=== PATIENT | female | born 1990 | race Caucasian/White ===

== ENCOUNTER → 2022-07-31 08:06 | Outpatient (REF) | payer OTHER, SELFPAY ==
--- NOTE | 2022-07-31 08:13 | ECG_ITS ---
Test Reason : chest pain Blood Pressure : / mmHG Vent. Rate : 075 BPM Atrial Rate : 075 BPM P-R Int : 150 ms QRS Dur : 082 ms QT Int : 400 ms P-R-T Axes : 044 027 036 degrees QTc Int : 446 ms Normal sinus rhythm Normal ECG No previous ECGs available Referred By: Jenn Blanchard Electronically Signed By:RITA REYES
[2022-07-31 08:21] LABS: MANUAL DIFF FLAG NO
[2022-07-31 08:28] LABS: Basophils Percent Auto 0.5 % (0-2); Eosinophils Absolute Auto 0.2 X10*3/uL (0.0-0.4); Hematocrit 38.3 % (37.0-47.0); Hemoglobin 12.3 g/dl (12.0-16.0); Imm Gran Abs Auto 0.03 X10*3/uL (0.00-0.03); Imm Gran Pct Auto 0.4 % (0.0-0.4); Lymphocytes Absolute Auto 1.5 X10*3/uL (1.2-4.9); Lymphocytes Percent Auto 19.5 % (20-40); Mean Corpuscular HGB Conc 32.1 g/dl (31.0-35.0); Mean Corpuscular Hemoglobin 27.3 pg (27.0-33.0); Mean Corpuscular Volume 84.9 fL (80.0-98.0); Mean Platelet Volume 10.3 fL (9.4-12.3); Monocytes Absolute Auto 0.6 X10*3/uL (0.1-1.2); Monocytes Percent Auto 7.2 % (2-11); Neutrophils Absolute Auto 5.6 x10*3/uL (2.0-8.3); Neutrophils Percent Auto 70.4 % (45-73); Platelet Count 302 X10*3/uL (160-400); Red Blood Count 4.51 X10*6/uL (4.20-5.50); Red Cell Distribution Width 13.8 % (11.0-16.0); White Blood Count 7.9 X10*3/uL (4.8-10.8)
[2022-07-31 09:22] LABS: Alanine Aminotransferase 16 U/L (0-31); Albumin Level 4.3 g/dL (3.5-5.0); Alkaline Phosphatase 63 U/L (39-117); Anion Gap 11 (12-20); Aspartate Amino Transferase 15 U/L (5-31); Bilirubin Total 0.7 mg/dL (0.0-1.0); Blood Urea Nitrogen 14 mg/dL (9-16); Calcium 9.4 mg/dL (8.4-10.2); Carbon Dioxide 25 mmol/L (22-29); Chloride 106 mmol/L (96-108); Cholesterol 155 mg/dL; Estimated Glomerular Filt Rate > 60; Glucose Fasting 89 mg/dL (60-99); HDL Cholesterol 34 mg/dL; LDL Cholesterol Calculated 110 mg/dl; Potassium 4.4 mmol/L (3.3-5.1); Sodium 138 mmol/L (135-145); Thyroid Stimulating Hormone 0.51 uIU/mL (0.32-4.0); Total Protein 7.7 g/dL (6.5-8.0); Triglycerides 59 mg/dL
--- NOTE | 2022-07-31 15:00 | CA_ITS ---
Transthoracic Echocardiogram Patient (Last, First, Middle): Nabor Rosales, Gender: Female Date of : 1990 Age: 32 Procedure Date: 07/31/2022 Procedure Type: Transthoracic Echocardiogram Location: OP Height: 170.18 cm Weight: 104.33 kg BSA: 2.15 m2 Heart Rate: 79 bpm BP: 148 / 80 mmHg Button And Buckle Maker: SB Referring MD: Jenn Blanchard MD Symptoms: R01.1 - Cardiac murmur, unspecified Study Quality: Adequate ECG Rhythm: Sinus Conclusions: - The left ventricular systolic function is normal. The calculated ejection fraction is 65% by biplane method. - No obvious valvular pathology seen on this study. Findings Left Ventricle Normal left ventricular cavity size. The left ventricular systolic function is normal. The calculated ejection fraction is 65% by biplane method. There is no evidence of regional wall motion abnormalities. Diastolic function is normal for age. There is mild septal asymmetric hypertrophy. Right Ventricle Normal right ventricular cavity size and systolic function. Atria Both atria are normal in size. Aortic Valve There is a normal trileaflet aortic valve. There is no aortic valve stenosis. There is no aortic valve regurgitation. Mitral Valve The mitral valve appears normal. There is no mitral valve regurgitation. There is no mitral valve stenosis. Pulmonic Valve The pulmonic valve is likely normal. Tricuspid Valve There is no tricuspid valve regurgitation. Tricuspid regurgitation envelope is inadequate for calculation of right ventricular systolic pressure. Great Vessels The asc aorta is normal in size. Venous The inferior vena cava is normal in size and collapses greater than 50% with inspiration. Pericardium/Pleural There is no evidence of pericardial effusion. Prior Study Comparison No prior study available for comparison. Recommendations, Care & Conclusions No obvious valvular pathology seen on this study. Measurements 2D Linear Measurements IVSd: 1.15 0.6-0.9/0.6-1.0 cm LVIDd: 4.51 3.9-5.3/4.2-5.9 cm LVIDd Index: 2.10 2.4-3.2/2.2-3.1 cm/m2 LVIDs: 3.17 2.0-3.6 cm LVPWd: 0.91 0.7-1.1 cm LA Diam: 3.80 2.7-3.8/3.0-4.0 cm LAIDs Index: 1.77 1.5-2.3 cm/m2 LV Mass: 199.67 67-162/88-224 g LV Mass Index: 92.87 43-95/49-115 g/m2 LVOT Diam: 2.40 3.0+(-)1.3 cm 2D Systolic Function EF 4C: 67.00 >55% EF 2C: 62.30 >55% EF BiP: 64.80 >55% Mitral Valve MV Pk E: 0.88 MV PK A: 0.65 MV Decel Time: 156.00 E/A: 1.40 E'Lateral: 10.20 E'Medial: 8.70 E/E' Med: 10.10 E/E' Lat: 8.60 PHT: 46.00 MVA PHT: 4.78 Decel Bulloch: 5.61 Aortic Valve AoV Pk Juan Jose: 1.45 AoV Pk Grad: 8.00 EUGENE: 3.37 LVOT LVOT Pk Juan Jose: 1.06 LVOT Mn Juan Jose: 0.73 LVOT VTI: 0.21 LVOT Pk Grad: 4.00 LVOT Mn Grad: 2.00 LVOT Diam: 2.40 LVOT Area: 4.52 Diastolic Function MV Pk E: 0.88 MV Pk A: 0.65 E/A: 1.40 E'Medial: 8.70 E/E' Med: 10.10 E' Laterial: 10.20 E/E' Lat: 8.60 Right Ventricle TAPSE (mm): 18.90 TVS' Juan Jose: 14.10 Tricuspid Valve RA Press: 3.00 Great Vessels Aorta Sinus of Valsalva: 3.40 2.0-3.5 cm Ao Asc: 3.20 2.1-3.4 cm Pulmonary Veins Pulm Vein S/D 1.40 Pulmonary Valve PV Pk Juan Jose: 1.00 Peak PV Grad: 4.00 Updated in Other Vendor System with Status of Final Nikhil Hubbard MD electronically signed on 08/02/2022 12:39:53 PM with status of Final
== END ==
LOC: HO.CARD 08:06
PROVIDERS: PCP Internal Medicine; Visit Provider Internal Medicine
DX: R07.9 Chest pain, unspecified (principal); R01.1 Cardiac murmur, unspecified; E66.9 Obesity, unspecified; Z68.36 Body mass index [BMI] 36.0-36.9, adult; I10 Essential (primary) hypertension; D64.9 Anemia, unspecified
CPT/HCPCS: 36415; 80053; 80061; 84443; 85025; 93005; 93306

== ENCOUNTER 2023-11-11 08:36 | Outpatient (REF) | payer OTHER, SELFPAY ==
[2023-11-11 09:52] LABS: Estimated Average Glucose 105 mg/dL; Hemoglobin A1c % 5.3 % (<6.0)
[2023-11-11 10:09] LABS: Alanine Aminotransferase 14 U/L (0-31); Alkaline Phosphatase 64 U/L (39-117); Anion Gap 9 (12-20); Aspartate Amino Transferase 15 U/L (5-31); Bilirubin Total 0.5 mg/dL (0.0-1.0); Blood Urea Nitrogen 9 mg/dL (9-16); Calcium 9.4 mg/dL (8.4-10.2); Carbon Dioxide 24 mmol/L (22-29); Chloride 110 mmol/L (96-108); Cholesterol 135 mg/dL (<200); Estimated Glomerular Filt Rate > 60; Glucose Random 89 mg/dL (60-115); HDL Cholesterol 37 mg/dL (>40); LDL Cholesterol Calculated 83 mg/dL (<100); Sodium 139 mmol/L (135-145); Triglycerides 77 mg/dL (<150)
[2023-11-11 10:25] LABS: TSH reflex Free T4 1.11 uIU/mL (0.32-4.0)
[2023-11-11 12:46] LABS: Cortisol Random < 1.0 ug/dL
[2023-11-14 21:09] LABS: Thyrotropin Receptor Antibody <1.00 IU/L (<=2.00)
[2023-11-22 10:38] LABS: Testosterone, Free 1.7 pg/mL (0.1-6.4); Testosterone, Total 14 ng/dL (2-45)
== END 2023-11-11 08:37 | disposition home or self-care (01) ==
LOC: HO.LAB 08:36
PROVIDERS: PCP Internal Medicine; Visit Provider Internal Medicine Endocrinology, Diabetes & Metabolism
DX: L68.0 Hirsutism (principal); I10 Essential (primary) hypertension
CPT/HCPCS: 36415; 80053; 80061; 82533; 83036; 83498; 83520; 84402; 84403; 84443

== ENCOUNTER 2023-12-08 08:24 | Outpatient (AMB) | payer OTHER, SELFPAY ==
[2023-12-08 08:46] VITALS: BP 142/98; PULSE 81; O2SAT 98; BMI 38.1
--- NOTE | 2023-12-08 08:46 | A.OFFPC_ITS ---
Vital Signs 12/08/23 08:46 Height 5 ft 7 in Weight 243 lb BMI 38.1 BP 142/98 H Blood Pressure Location Lt brachial Position Sitting Pulse 81 Pulse Source Pulse Oximeter Pulse Oximetry (%) 98 Oxygen Delivery Method Room Air Intake Visit Reasons: Annual Exam Anode Adjuster Required: No Accompanied by: Self / Same As Patient Allergies No Known Allergies Allergy (Verified 12/08/23 08:53) Medication List - Last Reconciled 12/08/23 by Jenn Blanchard MD famotidine 20 mg PO BID medroxyprogesterone 30 mg PO DAILY metoprolol succinate ER 25 mg PO DAILY 90 days Tobacco use date assessed: 12/08/23 Dental Screening Dental Screen Date: 12/08/23 Did you have a dental visit in the last 12 months?: Yes Did you have a dental problem in the last 6 months where you did not have access to dental care?: No Was dental information given to patient?: Patient has dentist HPI HPI Comments History of Present Illness Details This is a 33-year-old female that comes for physical exam. Last Pap smear was January 2023 and as per patient was normal. She complains of difficulty swallowing solids that started few weeks ago. Has enlarged tonsils and mild s ore throat and I will start her on amoxicillin. No fever, night sweats or lymphadenopathy. Labs were discussed and were within normal limits. She is obese with a BMI of 38.1 and was advised to diet and exercise to reach BMI goal less than 30. She has not interested in being referred to weight management for weight loss surgery. [facility] Surgical History History of hydrocephalus Family History Mother Hypertension Diabetes Thyroid disease Father Diabetes Mental health disorder Social History Housing: House Alcohol intake: never Patient Tobacco Use Status: Never used Tobacco e-Cigarette/Vaping Use: Never Used Second Hand Smoke Exposure: No service: No Current occupational status: employed Current occupational exposures/hazards: No Cognitive needs: No Hearing needs: No Vision needs: No Questionnaire PHQ-9 Over the last 2 weeks, how often have you been bothered by any of the following problems? 1. Little interest or pleasure in doing things: not at all 2. Feeling down, depressed, or hopeless: not at all 3. Trouble falling or staying asleep, or sleeping too much: not at all 4. Feeling tired or having little energy: not at all 5. Poor appetite or overeating: not at all 6. Feeling bad about yourself - or that you are a failure or have let yourself or your family down: not at all 7. Trouble concentrating on things, such as reading the newspaper or watching television: not at all 8. Moving or speaking so slowly that other people could have noticed. Or the opposite - being so fidgety or restless that you have been moving around a lot more than usual: not at all 9. Thoughts that you would be better off or of hurting yourself in some way: not at all Total score: 0 Depression Screening Interpretation: Negative Depression Screening Done: Yes 76152 - PHQ-9 Billing: Yes Source: Developed by Drs. Mikal Boston, Yana Isaac, Vick Zavala and colleagues, with an educational charles from [employer]. Thrive Questionnaire Date Thrive assessed: 12/08/23 I am a: Patient What is your living situation today?: I have a steady place to live Within the past 12 months, did the food you bought not last and you didn't have the money to get more?: Never true Within the past 12 months, did you worry whether your food would run out before you got money to buy more?: Never true Do you have trouble paying for medicines?: No Do you have trouble getting transportation to medical appointments?: No Do you have trouble paying your heating and electricity bill?: No Do you have trouble taking care of your child, family member or friend?: No Do you have trouble with day-to-day activities such as bathing, preparing meals, shopping, managing finances, etc.?: No Are you currently unemployed and looking for a job?: No Are you interested in more education?: No Currently or been in a relationship where the following occur: no concerns reported THRIVE Score: 0 AUDIT C Alcohol Use Questionnaire (AUDIT-C) 1. How often do you have a drink containing alcohol?: Never Total Score: 0 Score Reviewed/Action Taken: No TANI-7 AMB Questionnaire TANI-7 Date TANI - 7 assessed: 12/08/23 Feeling nervous, anxious, or on edge: 0 = Not at all Not being able to stop or control worryin = Not at all Worrying too much about different things: 0 = Not at all Trouble relaxin = Not at all Being so restless that it is hard to sit still: 0 = Not at all Becoming easily annoyed or irritable: 0 = Not at all Feeling afraid as if something awful might happen: 0 = Not at all Total TANI-7 score (0-4 normal; 5-9 mild; 10-14 moderate; 15-21 severe): 0 Source: Developed by Drs. Mikal Boston, Yana Isaac, Vick Zavala and colleagues, with an educational charles from [employer]. TANI-7 Assessment Billing TANI-7 Assessment Tool: TANI-7 Assessment 39009 Review of Systems Const All systems reviewed & are unremarkable except as noted in HPI and below Eyes Reports no additional complaints, Denies change in vision and Denies other visual disturbances ENT Reports dysphagia and Reports sore throat Card Denies chest pain at rest, Denies chest pain with activity, Denies edema, Denies irregular heart rhythm, Denies claudication, Denies dyspnea, Denies dyspnea on exertion, Denies orthopnea, Denies paroxysmal nocturnal dyspnea and Denies slow heart rate Resp Denies cough, Denies dyspnea and Denies dyspnea on exertion GI Denies abdominal pain, Denies change in bowel habits, Reports dysphagia, Denies excessive flatus, Denies nausea and Denies vomiting Denies urinary incontinence, Denies urinary hesitancy and Denies urinary urgency Neuro Denies lack of coordination Physical exam (Primary Care) Vital Signs: Last Vital Signs Pulse 81 12/08/23 08:46 BP 142/98 H 12/08/23 08:46 Pulse Ox 98 12/08/23 08:46 Oxygen Delivery Method Room Air 12/08/23 08:46 BMI result Body Mass Index 38.1 BMI Assessment/Plan discussion: High BMI High, discussed plan: lifestyle, weight reduction, dietary and physical activity Tobacco/Smoking Status: Tobacco use Status Tobacco use date assessed 12/08/23 12/08/23 08:51 Patient Tobacco Use Status Never used Tobacco 12/08/23 08:51 e-Cigarette/Vaping Use Never Used 12/08/23 08:51 PHQ-9: PHQ-9 Score PHQ-9: Total score 0 12/08/23 08:51 Depression Screening Interpretation: Negative Thrive Assessment: Date of Thrive Assessment Date Thrive assessed 12/08/23 12/08/23 08:51 Currently or been in a relationship where the following occur: no concerns reported Const Orientation/consciousness: patient oriented x3 HENMT Head: Yes normal to inspection, Yes normocephalic and Yes atraumatic Ears: external ears normal Eyes General: appearance normal, both eyes and all related structures Eyelids: Yes eyelids normal Conjunctivae: conjunctivae normal Neck Neck: Yes normal visual inspection and Yes supple Resp Effort & Inspection: normal respiratory effort Auscultation: clear to auscultation bilaterally Cardio Jugular venous distension: no JVD Rate: regular rate Rhythm: regular rhythm Heart sounds: S1 normal heart sound present and S2 normal heart sound present GI Inspection: Yes normal to inspection Palpation (GI): Soft to palpation and nontender Auscultation: normal bowel sounds Skin General skin exam: no rashes or lesions noted Neuro General: patient oriented x3 and no focal motor deficits Extrem General: Yes full ROM Psych Appearance: grossly normal Assessment and Plan Assessment & Plan (1) Physical exam: Code(s): Z00.00 - Encounter for general adult medical examination without abnormal findings Plan: Repeat in a year. Orders: Orders Lipid Panel 1 Year Z00.00 - Encounter for general adult medical examination without abnormal findings Comprehensive [place]. Panel Fast 1 Year Z00.00 - Encounter for general adult medical examination without abnormal findings FL barium swallow Today R13.10 - Dysphagia, unspecified Referrals Ear/Nose/Throat Referral J35.1 - Hypertrophy of tonsils Medications: New amoxicillin 500 mg PO BID 7 days 14 tabs 0RF Coding Level of Care Code Est Pt Prev Care 18-39y(08978) Diagnoses Physical exam Z00.00 Additional Codes TANI-7 Assessment Billing - TANI-7 Assessment Tool: TANI-7 Assessment 61291 ([id number]) Time Spent (min) 31
== END 2023-12-08 09:03 | disposition home or self-care (01) ==
PROVIDERS: Visit Provider Internal Medicine
DX: Z00.00 Encounter for general adult medical examination without abnormal findings (principal)
CPT/HCPCS: 99395

== ENCOUNTER 2023-12-22 07:46 | Outpatient (REF) | payer OTHER, SELFPAY ==
--- NOTE | ~2023-12-22 | FL_ITS ---
EXAMINATION: XR FLUOROSCOPY UPPER GI WITH AIR CLINICAL INFORMATION: Dysphagia COMPARISON: None TECHNIQUE: Fluoroscopic air contrast upper GI examination was performed utilizing standard techniques with thin and thick barium and effervescent granules. Numerous spot images were obtained. FINDINGS: Lateral cine images of the oropharynx and hypopharynx demonstrate normal swallow mechanism with normal epiglottic inversion and soft palate elevation. There was persistent pooling of contrast in the vallecula and piriform sinuses. No tracheal penetration, glottic or subglottic aspiration identified. No nasopharyngeal reflux present. Hypopharyngeal structures appear normal without evidence of mass or diverticulum. There was no significant cricopharyngeal achalasia. Dual and single contrast images of the esophagus demonstrate normal caliber, contour, and mucosal pattern. No evidence of stricture, mass, or ulcerations identified. Esophageal peristalsis was mildly disorganized. A small type I hiatal hernia is present. A small amount of gastroesophageal reflux is seen in the distal esophagus. Dual contrast and single contrast images of the stomach demonstrated normal contour and mucosal pattern without evidence of mass, ulceration, or other abnormality. Contrast freely passed into the gastric antrum and duodenal bulb without delay. Single and air-contrast images of the duodenal bulb demonstrate no abnormality. The duodenal sweep has a normal appearance, course, and mucosal fold appearance. No malrotation. The imaged proximal jejunum has a normal fold pattern and caliber. FLUOROSCOPY TIME: 3 minutes 35 seconds Number of Spot Images: 7 Number of Cine: 14 DOSE AREA PRODUCT: 2880 uGy-m2 (microgray-meter squared) FL/FL barium swallow IMPRESSION: 1. Mildly disorganized esophageal peristalsis. 2. Small type I hiatal hernia. 3. Mild gastroesophageal reflux. This procedure was performed by Harinder Altamirano PA-C, and supervised by Dr. Pruett
== END 2023-12-22 07:47 | disposition home or self-care (01) ==
LOC: HO.XRAY 07:46
PROVIDERS: PCP Internal Medicine; Visit Provider Internal Medicine
DX: R13.10 Dysphagia, unspecified (principal)
CPT/HCPCS: 74220

== ENCOUNTER → 2023-12-22 07:46 | Outpatient (BNV) | payer OTHER, SELFPAY | PROVIDERS: PCP Internal Medicine; Visit Provider Physician Assistant Surgical | DX: R13.10 Dysphagia, unspecified (principal) | CPT/HCPCS: 74246 ==

== ENCOUNTER 2024-03-08 12:08 | Outpatient (AMB) | payer OTHER, SELFPAY ==
--- NOTE | 2024-03-08 12:17 | A.OFFVIS_ITS ---
Vital Signs 03/08/24 12:27 Height 5 ft 7 in Weight 239 lb BMI 37.4 BP 134/71 Blood Pressure Location Lt brachial Position Sitting Pulse 75 Intake Visit Reasons: Dysphagia Intake Note: Patient new consult for Dysphagia Patient cc: difficulty swallowing on and off, Nauseas come and go with poor appetite, abdominal burning sensation with diarrhea come and go. Denies any other GI issues. 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 She is referred by Jenn Miller. PMX Fibromyalgia syndrome Hypertension Heart murmur * SURGICAL HISTORY Question hydrocephalus procedure * ALLERGIES: NKDA * [employer]) LABS: Laboratory Tests 11/11/23 08:41 Estimated GFR > 60 Total Bilirubin 0.5 AST 15 ALT 14 Alkaline Phosphatase 64 TSH 1.11 BARIUM SWALLOW 12/22/23 FINDINGS: Lateral cine images of the oropharynx and hypopharynx demonstrate normal swallow mechanism with normal epiglottic inversion and soft palate elevation. There was persistent pooling of contrast in the vallecula and piriform sinuses. No tracheal penetration, glottic or subglottic aspiration identified. No nasopharyngeal reflux present. Hypopharyngeal structures appear normal without evidence of mass or diverticulum. There was no significant cricopharyngeal achalasia. Dual and single contrast images of the esophagus demonstrate normal caliber, contour, and mucosal pattern. No evidence of stricture, mass, or ulcerations identified. Esophageal peristalsis was mildly disorganized. A small type I hiatal hernia is present. A small amount of gastroesophageal reflux is seen in the distal esophagus. Dual contrast and single contrast images of the stomach demonstrated normal contour and mucosal pattern without evidence of mass, ulceration, or other abnormality. Contrast freely passed into the gastric antrum and duodenal bulb without delay. Single and air-contrast images of the duodenal bulb demonstrate no abnormality. The duodenal sweep has a normal appearance, course, and mucosal fold appearance. No malrotation. The imaged proximal jejunum has a normal fold pattern and caliber. FLUOROSCOPY TIME: 3 minutes 35 seconds Number of Spot Images: 7 Number of Cine: 14 DOSE AREA PRODUCT: 2880 uGy-m2 (microgray-meter squared) FL/FL barium swallow IMPRESSION: 1. Mildly disorganized esophageal peristalsis. 2. Small type I hiatal hernia. 3. Mild gastroesophageal reflux. TODAY'S VISIT The problem has been for months. When eating she will feel like both liquids and solid food gets stuck just above the sternal notch. This is an on and off problem. She has a globus sensation. This happens 3-4 times a week. She suffers HB that improved with famotidine 20mg bid and she has cut down coffee and spicy foods. It is worse in the am that she feels epigastric pain and HB. She has been on the famotidine 4-5 years. She tried protonix first but the famotidine works better. No meds changes, no big diet changes, no illness or wt loss or gain. For the st part her stooling is normal except for occasional diarrhea r/t caffeine. No known similar FHX of problems. She had an EGD in [address] Ayala. She seems to remember it was okay. Her mother has gallstones. EGD/ US, Mod barium swallow since liquids are a problem w/o solids. Any cardiac or respiratory problems. There are no prior problems with anesthesia or sedation. There are no infectious disease problems. ROV 6 weeks to eval increase in famotidine bid to 40mg. [facility], LAT[facility] Medical History (Updated 04/22/24 @ 11:31 by RAFFY Tsang) Physical exam Surgical History History of hydrocephalus Family History Mother Hypertension Diabetes Thyroid disease Father Diabetes Mental health disorder Social History Housing: House Alcohol intake: never Patient Tobacco Use Status: Never used Tobacco e-Cigarette/Vaping Use: Never Used Second Hand Smoke Exposure: No service: No Current occupational status: employed Current occupational exposures/hazards: No Cognitive needs: No Hearing needs: No Vision needs: No Review of Systems Const Denies fatigue, Denies fever(s), Denies night sweats, Denies poor appetite and Denies weight loss ENT Reports Normal hearing present, Denies dental pain, Reports dysphagia, Denies hearing loss, Denies mouth pain, Denies odynophagia, Denies throat swelling, Denies tongue swelling and Reports other (Dentition adequate) Card Reports no additional complaints Resp Reports no additional complaints GI Details: Denies abdominal pain, Denies melena, Denies bloating, Denies hematochezia, Denies constipation, Denies GI cramping, Reports dysphagia, Denies excessive flatus, Denies early satiety, Reports heartburn, Denies diarrhea, Denies nausea, Denies odynophagia, Denies vomiting and Denies hematemesis Skin/Breast Denies pruritus, Denies lesions, Denies rash and Denies jaundice Neuro Reports Normal hearing present and Denies Abnormal speech present Endo Denies fatigue Aller/Immun Denies throat swelling and Denies tongue swelling Physical Exam Vital Signs: Last Vital Signs Pulse 75 03/08/24 12:27 BP 134/71 03/08/24 12:27 BMI result Body Mass Index 37.4 Const General: cooperative, no acute distress, well developed and well groomed Nutritional Appearance: well nourished and obese morbidly obese Orientation/consciousness: oriented to person, oriented to place and oriented to time Limitations: No language barrier HEENT Head: Yes normocephalic and Yes atraumatic Eyes General: appearance normal, both eyes and all related structures Pupils: Equal, round and reactive pupils present Neck Neck: Yes normal visual inspection and Yes no lymphadenopathy Thyroid: Thyroid normal Resp Effort & Inspection: normal respiratory effort and able to speak in complete sentences Auscultation: clear to auscultation bilaterally Cardio Rate: regular rate Rhythm: regular rhythm Heart sounds: Normal, physiologic split S2 sound present Peripheral pulses: radial pulses present and posterior tibial pulses present GI Inspection: No distended, No Abdominal panniculus present and Yes obesity Palpation (GI): Soft to palpation, nontender, no guarding, not rigid and No hepatosplenomegaly present Percussion: Yes normal to percussion Auscultation: normal bowel sounds Rectal Exam - Female: deferred Skin General skin exam: no rashes or lesions noted, turgor normal, skin not dry, no jaundice, No spider nevi and no striae Rashes: no rashes Nails: normal Neuro General: oriented to person, oriented to place and oriented to time Cranial nerves: Yes Equal, round and reactive pupils present and Yes Normal hearing present Speech: No Abnormal speech present Extrem General: Yes normal to inspection, No clubbing, No cyanosis and No edema Psych Appearance: grossly normal and well kempt Mental Status: mental status grossly normal Speech and movement: Normal speech and movement present Affect: normal affect Attitude: cooperative Thought process: Normal thought process present and not confabulating Thought content: Normal thought content present Insight: Limited insight present (Psych) Judgement: Limited judgement present (Psych) Results Reviewed Results Reviewed: Laboratory Tests 11/11/23 08:41 Estimated GFR > 60 Total Bilirubin 0.5 AST 15 ALT 14 Alkaline Phosphatase 64 TSH 1.11 BARIUM SWALLOW 12/22/23 FINDINGS: Lateral cine images of the oropharynx and hypopharynx demonstrate normal swallow mechanism with normal epiglottic inversion and soft palate elevation. There was persistent pooling of contrast in the vallecula and piriform sinuses. No tracheal penetration, glottic or subglottic aspiration identified. No nasopharyngeal reflux present. Hypopharyngeal structures appear normal without evidence of mass or diverticulum. There was no significant cricopharyngeal achalasia. Dual and single contrast images of the esophagus demonstrate normal caliber, contour, and mucosal pattern. No evidence of stricture, mass, or ulcerations identified. Esophageal peristalsis was mildly disorganized. A small type I hiatal hernia is present. A small amount of gastroesophageal reflux is seen in the distal esophagus. Dual contrast and single contrast images of the stomach demonstrated normal contour and mucosal pattern without evidence of mass, ulceration, or other abnormality. Contrast freely passed into the gastric antrum and duodenal bulb without delay. Single and air-contrast images of the duodenal bulb demonstrate no abnormality. The duodenal sweep has a normal appearance, course, and mucosal fold appearance. No malrotation. The imaged proximal jejunum has a normal fold pattern and caliber. FLUOROSCOPY TIME: 3 minutes 35 seconds Number of Spot Images: 7 Number of Cine: 14 DOSE AREA PRODUCT: 2880 uGy-m2 (microgray-meter squared) FL/FL barium swallow IMPRESSION: 1. Mildly disorganized esophageal peristalsis. 2. Small type I hiatal hernia. 3. Mild gastroesophageal reflux. Assessment & Plan Assessment & Plan (1) Dysphagia: Code(s): R13.10 - Dysphagia, unspecified Category: Medical (2) Enlarged tonsils: Code(s): J35.1 - Hypertrophy of tonsils Category: Medical (3) Chronic GERD: Code(s): K21.9 - Gastro-esophageal reflux disease without esophagitis Category: Medical (4) Class 2 obesity with body mass index (BMI) of 36.0 to 36.9 in adult: Code(s): E66.9 - Obesity, unspecified; Z68.36 - Body mass index [BMI] 36.0-36.9, adult Category: Medical (5) Upper abdominal pain: Code(s): R10.10 - Upper abdominal pain, unspecified Category: Medical Plan The problem has been for months. When eating she will feel like both liquids and solid food gets stuck just above the sternal notch. This is an on and off problem. She has a globus sensation. This happens 3-4 times a week. She suffers HB that improved with famotidine 20mg bid and she has cut down coffee and spicy foods. It is worse in the am that she feels epigastric pain and HB. She has been on the famotidine 4-5 years. She tried protonix first but the famotidine works better. No meds changes, no big diet changes, no illness or wt loss or gain. For the most part her stooling is normal except for occasional diarrhea r/t caffeine. No known similar FHX of problems. She had an EGD in [address] Ayala. She seems to remember it was okay. Her mother has gallstones. EGD/ US, Mod barium swallow since liquids are a problem w/o solids. Any cardiac or respiratory problems. There are no prior problems with anesthesia or sedation. There are no infectious disease problems. ROV 6 weeks to eval increase in famotidine bid to 40mg. Orders: Orders FL barium swallow modified 04/06/24 R13.10 - Dysphagia, unspecified, K21.9 - Gastro-esophageal reflux disease without esophagitis US abdomen complete 03/08/24 R10.10 - Upper abdominal pain, unspecified EGD - GI Use Only 03/08/24 R13.10 - Dysphagia, unspecified Medications: New famotidine (Pepcid) 40 mg PO BID 60 tabs 6RF R13.10 - Dysphagia, unspecified, K21.9 - Gastro-esophageal reflux disease without esophagitis Discontinued amoxicillin Discontinued Reason: Patient Completed Course 500 mg PO BID 7 days 14 tabs 0RF Coding Level of Care Code New Pt Level 3 (03083) Diagnoses Dysphagia R13.10 Enlarged tonsils J35.1 Chronic GERD K21.9 Class 2 obesity with body mass index (BMI) of 36.0 to 36.9 in adult E66.9; Z68.36 Upper abdominal pain R10.10
[2024-03-08 12:27] VITALS: BP 134/71; PULSE 75; BMI 37.4
== END 2024-03-08 13:03 | disposition home or self-care (01) ==
PROVIDERS: PCP Internal Medicine; Visit Provider Nurse Practitioner
DX: R13.10 Dysphagia, unspecified (principal); J35.1 Hypertrophy of tonsils; K21.9 Gastro-esophageal reflux disease without esophagitis; E66.9 Obesity, unspecified; Z68.36 Body mass index [BMI] 36.0-36.9, adult; R10.10 Upper abdominal pain, unspecified
CPT/HCPCS: 99203

== ENCOUNTER → 2024-03-08 12:08 | Outpatient (BNVA) | payer OTHER, SELFPAY | PROVIDERS: PCP Internal Medicine; Visit Provider Nurse Practitioner ==

== ENCOUNTER 2024-03-16 09:28 | Outpatient (REF) | payer OTHER, SELFPAY ==
--- NOTE | ~2024-03-16 | US_ITS ---
EXAMINATION: US ABDOMEN COMPLETE CLINICAL INFORMATION: Upper abdominal pain, unspecified. COMPARISON: None available. TECHNIQUE: Real-time imaging of the abdominal viscera. Limited visualization due to bowel gas. FINDINGS: PANCREAS: Limited visualization of pancreatic tail and head. Imaged portion of pancreatic body is unremarkable. ABDOMINAL AORTA: Limited visualization of the abdominal aorta. Imaged portion of mid abdominal aorta is within normal limits in caliber. INFERIOR VENA CAVA: Visualized portions are normal. LIVER: Increased hepatic parenchymal heterogeneity and echogenicity could be associated with hepatocellular disease/hepatic steatosis and substantially limits visualization. Correlation with liver function tests and clinical exam recommended to determine further management. GALLBLADDER:. Focal thickening of the anterior gallbladder wall measures 0.4 cm. No gallstones appreciated. COMMON BILE DUCT: Normal in caliber measuring 0.5 cm in diameter. RIGHT KIDNEY: No hydronephrosis. No renal calculi. Limited visualization. The kidney measures 11.3 cm in maximum dimension. LEFT KIDNEY: No hydronephrosis. No renal calculi. Limited visualization. The kidney measures 11.9 cm in maximum dimension. SPLEEN: Normal. The spleen measures 10.0 cm in maximum dimension. FREE FLUID: None. US/US abdomen complete IMPRESSION: 1. Increased hepatic parenchymal heterogeneity and echogenicity could be associated with hepatocellular disease/hepatic steatosis and substantially limits visualization. Correlation with liver function tests and clinical exam recommended to determine further management. 2. Focal thickening of the anterior gallbladder wall measures 0.4 cm. No gallstones appreciated.
== END 2024-03-16 09:29 | disposition home or self-care (01) ==
LOC: HO.US 09:28
PROVIDERS: PCP Internal Medicine; Visit Provider Nurse Practitioner
DX: R10.10 Upper abdominal pain, unspecified (principal)
CPT/HCPCS: 76700

== ENCOUNTER 2024-04-06 14:14 | Outpatient (REF) | payer OTHER, SELFPAY ==
--- NOTE | ~2024-04-06 | FL_ITS ---
EXAMINATION: Modified Barium Swallow CLINICAL INFORMATION: Dysphagia COMPARISON: None TECHNIQUE: Modified barium swallow was performed under lateral fluoroscopy with patient in standing position. Barium mixed with solids and liquids of different consistencies was administered by the speech pathologist. Examination was recorded in the fluoroscopy suite. FINDINGS: No laryngeal penetration or aspiration was observed during this examination. FLUOROSCOPY TIME: 36 seconds Number of Spot Images: N/A DOSE AREA PRODUCT: 311.8 uGy-m2 (microgray-meter squared) FL/FL Modified Barium Swallow IMPRESSION: No laryngeal penetration or aspiration was observed during this examination. Refer to the speech therapy report for further clarification This procedure was performed by Harinder Altamirano PA-C, and supervised by Dr. Pruett Electronically signed by: Jose Pruett MD 04/08/2024 12:46 PM EDT
--- NOTE | 2024-04-13 14:05 | MHC.SL.IMP ---
Date of Plan of Treatment: 04/06/24 Onset of Symptoms/Illness: 09/06/23 Date Treatment Started: 04/06/24 Admitting Diagnosis: R13.10 Dysphagia, unspecified K21.9 Gastro-esophageal reflux disease without esophagitis Primary Speech & Language Diagnosis: R13.10 Dysphagia Reason for Today's Visit: 00837 Modified Barium Swallow Study Pre-evaluation Dietary Consistencies: Regular Pre-evaluation Liquid Consistency: Thin Pre-evaluation Medication Administration: Whole with Liquid Medical History: Modified Barium Swallow Study Fluoroscopic Evaluation of Swallowing Function CPT Code 57432 Evaluation Year: 2023 Reason for Study: Difficulty swallowing Referring Physician: Lo AKBAR Evaluating Clinician: Christy English MA, CCC-BODYWORK THERAPIST Study Number: 1 Patient Name: Nabor Rock Status: Outpatient, Ambulatory Age: 34 Gender: Female Medical History History of hydrocephalus Current (pre-evaluation) Intake/Diet: Route: PO Diet Grade: Regular Liquid Consistencies: Thin Pre-Study Functional Oral Intake Scale (FOIS): 7- Total oral intake with no restrictions Pain: None reported at time of study SUBJECTIVE: Patient is a 34 year old female with history of fibromyalgia syndrome, hypertension, and heart murmur, referred for a modified barium swallow study by Lo AKBAR from the Gastroenterology office. Patient reported trouble swallowing intermittently for months with the sensation that something was stuck just above the sternal notch when eating and drinking. Patient says this occurs 3-4 times a week. She did have a barium swallow x-ray on 12/22/23 which showed mildly disorganized esophageal peristalsis, small type 1 hiatal hernia, and mild gastroesophageal reflux. Oral Motor Exam Facial Symmetry: Symmetrical Mouth Occlusion: Normal Oral-Facial Teeth Characteristics: Intact/Normal Oral-Facial Lip Pucker Description: Normal Oral-Facial Smile (Lips) Description: Normal Oral-Facial Puff Cheeks Description: Normal Tongue Size: Normal Is patient able to manage secretions?: Yes Food and Liquid Trials: Oral Impairment: Lip Closure: Did not test Oral Impairment: Tongue Control During Bolus Hold: Did not test Oral Impairment: Bolus Preparation/Mastication: 0=Timely and efficient chewing and mashing Oral Impairment: Bolus Transport/Lingual Motion: 0=Brisk tongue motion Oral Impairment: Oral Residue: 2=Residue collection on oral structures Oral Impairment:Initiation of Pharyngeal Swallow: 1=Bolus head in valleculae Pharyngeal Impairment: Soft Palate Elevation: 0=No bolus between soft palate (SP)/pharyngeal wall (PW) Pharyngeal Impairment: Laryngeal Elevation: 1=Partial thyroid cartilage/arytenoids to epiglottic petiole movement Pharyngeal Impairment: Anterior Hyoid Excursion: 1=Partial anterior movement Pharyngeal Impairment: Epiglottic Movement: 1=Partial inversion Pharyngeal Impairment: Laryngeal Vestibular Closure:: 0=Complete: no air/contrast in laryngeal vestibule Pharyngeal Impairment: Pharyngeal Stripping Wave: 0=Present: complete Pharyngeal Impairment: Pharyngeal Contraction: Did not test Pharyngeal Impairment: Pharyngoesophageal Segment Openin=Complete distension and complete duration: no obstruction of flow Pharyngeal Impairment: Tongue Base (TB) Retraction: 1=Trace column of contrast/air between TB and posterior PW Pharyngeal Impairment: Pharyngeal Residue: 2=Collection of residue within or on pharyngeal structures Pharyngeal Impairment: Esophageal Clearance Upright Position: Did not test Impressions and Recommendations Clinical Observations: OBJECTIVE: Time-out: performed at 15:00 Evaluation Start: 14:30; Stop: 14:35 Patient Positioning: Standing Viewing Planes: LATERAL ONLY Contrast: MBSImP? Standardized Protocol using commercially prepared, standardized Barium viscosities, including: Varibar? THIN LIQUID (40% w/v, <15 cps) , Varibar? PUDDING (40% w/v, <3216-6427 cps) , 1/2 Shortbread Cookie (1 x1 x.25 ) MBSImP ID: [id number] [facility] Results: Lip closure for intraoral bolus containment could not be assessed due to logistical reasons not related to physiologic impairment. Tongue control during bolus hold could not be assessed due to logistical reasons not related to physiologic impairment. Bolus preparation and mastication resulted in timely and efficient chewing and mashing. Bolus transport/lingual motion was with brisk tongue motion. Oral residue was a collection on oral structures. Initiation of the pharyngeal swallow occurred when the bolus head was in the valleculae. Soft palate elevation resulted in no bolus between the soft palate and the pharyngeal wall. Laryngeal elevation was decreased, with partial superior movement of the thyroid cartilage/partial approximation of the arytenoids to the epiglottic petiole. Anterior hyoid excursion demonstrated partial anterior movement. Epiglottic movement resulted in partial inversion. Laryngeal vestibular closure was complete, as indicated by no air or contrast within the laryngeal vestibule at the height of the swallow. Pharyngeal stripping wave was present and complete. Pharyngeal contraction could not be determined due to logistical reasons not related to physiologic impairment. Pharyngoesophageal segment opening was completely distended for complete duration with no obstruction of bolus flow. Tongue base retraction allowed a trace column of contrast or air between the retracted tongue base and the posterior pharyngeal wall. Pharyngeal residue was a collection of residue within or on pharyngeal structures. Esophageal clearance in the upright position could not be assessed due to logistical reasons not related to physiologic impairment. Oral Impairment Score: 3 (absence of score, component 1component 2) Pharyngeal Impairment Score: 5 (absence of score, component 13) Esophageal Impairment Score: --- (absence of score, component 17) Laryngeal Penetration and Aspiration: Neither penetration nor aspiration was observed in today's study with Cookie, Puree, Thin. ASSESSMENT: This exam was conducted by the speech pathologist and the radiologist. Patient was standing for lateral view only and was able to feed herself without difficulty. She trialed Regular, Puree, and Thin (via cup) consistencies. Oral phase was quite unremarkable. Timely and efficient mastication. Brisk lingual motion. There was minimal residue coating the tongue and floor of mouth. Pharyngeal swallow trigger initiated when the bolus head reached the valleculae. No evidence of nasopharyngeal reflux. Incomplete laryngeal elevation with partial epiglottic inversion. Complete laryngeal vestibular closure. No evidence of aspiration or penetration during this exam. Mild retention in the valleculae with trace residue on the tongue base and in the pyriforms, reduced with subsequent swallows. No obstruction of flow through the PES. Liquid Intake Recommendation: Thin Liquid Intake Strategies: Unrestricted Dietary Recommendations: Regular Medication Administration: Whole with Liquid Please contact the pharmacy regarding appropriate crushable or liquid drug formulations that are available whenever modified delivery is recommended. Compensatory Strategies Recommended: Sitting Upright (90 deg), Double Swallow, Small Bites and Sips, Alternate Liquids/Solids, Rate of Ingestion Change Supervision during eating and or drinking: None Needed Recommendation for Speech Therapy: NA:Typical Evaluation Text Comment: Intake Recommendations: Route: PO Diet Grade: Regular Liquid Consistencies: Thin Post-Study Functional Oral Intake Scale (FOIS): 7- Total oral intake with no restrictions Mild oral and pharyngeal residue. No evidence of aspiration or penetration. Suggested Referrals: The patient might benefit from a referral to: Gastroenterology Indication for Referral: Continue workup Therapy Recommendations: This exam showed oral and pharyngeal phases to be relatively functional for swallowing. Recommend continue with an unmodified diet with strategies to promote clearance: take small bites, chew well, alternate bites and sips, dry swallow between bites. Speech Therapy is not indicated at this time. Recommend patient continue to monitoring her swallowing, if there are any changes or worsening of symptoms, she may benefit from a repeat-assessment. Clinician - Supplemental, Miscellaneous Communication: It is important to note MBSS objective studies are snapshots in time and Patient function might vary with factors such as time of day or concomitant medical conditions. For this reason, the final treatment plan for this patient should rest with their medical care team. Additional recommendations should be considered with the totality of the Patient in mind. Thank for the opportunity to participate in the care of this patient. If you have any questions about the content of this report, please contact the [facility]. Education: Education regarding findings from today's study and plans for therapy were provided to Patient only through Verbal Instruction. Understanding was expressed by the Patient only. Observation Nurse Clinician/Clinical Fellow: No Supervisory Statement: N/A Speech Language Pathologist: Christy English M.A., CCC-BODYWORK THERAPIST
== END 2024-04-06 14:15 | disposition home or self-care (01) ==
LOC: HO.XRAY 14:14
PROVIDERS: PCP Internal Medicine; Visit Provider Nurse Practitioner
DX: R13.10 Dysphagia, unspecified (principal); K21.9 Gastro-esophageal reflux disease without esophagitis
CPT/HCPCS: 74230; 92611

== ENCOUNTER → 2024-04-06 14:30 | Outpatient (BNV) | payer OTHER, SELFPAY | PROVIDERS: PCP Internal Medicine; Visit Provider Radiology Diagnostic Radiology | DX: R13.10 Dysphagia, unspecified (principal) | CPT/HCPCS: 74230 ==

== ENCOUNTER 2024-04-22 10:56 | Outpatient (AMB) | payer OTHER, SELFPAY ==
[2024-04-22 11:11] VITALS: BP 147/78; PULSE 81; BMI 37.6
--- NOTE | 2024-04-22 11:11 | A.OFFVIS_ITS ---
Vital Signs 04/22/24 11:11 Height 5 ft 7 in Weight 240 lb 4.862 oz BMI 37.6 BP 147/78 H Blood Pressure Location Rt brachial Position Sitting Pulse 81 Intake Visit Reasons: 6 week follow up Intake Note: Nabor presents in office follow up of US and barium swallow. CC: Patient reports that she is doing better with the medications prescribed to her, but continues to feel something stuck in her throat. [employer] Required: No Accompanied by: Self / Same As Patient Allergies No Known Allergies Allergy (Verified 04/22/24 11:15) HPI HPI 6 week follow up: Details: The problem has been for months. When eating she will feel like both liquids and solid food gets stuck just above the sternal notch. This is an on and off problem. She has a globus sensation. This happens 3-4 times a week. She suffers HB that improved with famotidine 20mg bid and she has cut down coffee and spicy foods. It is worse in the am that she feels epigastric pain nad HB. She has been on the famotidine 4-5 years. She tried protonix first but the famotidine works better. No meds changes, no big diet changes, no illness or wt loss or gain. For the most part her stooling is normal except for occasional dairrhea r/t caffeine. No known similar FHX of problems. She had an EGD in [address] Ayala. She seems to remember it was okay. Her mother has gallstones. EGD/ US, Mod barium swallow since liquids are a problem w/o solids. ROV 6 weeks to eval increase in famotidine bid to 40mg. Assessment & Plan (1) Dysphagia: Code(s): R13.10 - Dysphagia, unspecified Category: Medical (2) Enlarged tonsils: Code(s): J35.1 - Hypertrophy of tonsils Category: Medical (3) Chronic GERD: Code(s): K21.9 - Gastro-esophageal reflux disease without esophagitis Category: Medical (4) Class 2 obesity with body mass index (BMI) of 36.0 to 36.9 in adult: Code(s): E66.9 - Obesity, unspecified; Z68.36 - Body mass index [BMI] 36.0-36.9, adult Category: Medical (5) Upper abdominal pain: Code(s): R10.10 - Upper abdominal pain, unspecified Category: Medical Orders: Orders FL barium swallow modified Today K21.9 - Gastro-esophageal reflux disease without esophagitis, R13.10 - Dysphagia, unspecified US abdomen complete Today R10.10 - Upper abdominal pain, unspecified EDG - GI Use Only Today R13.10 - Dysphagia, unspecified Medications: New famotidine (Pepcid) 40 mg PO BID 60 tabs 6RF K21.9 - Gastro-esophageal reflux disease without esophagitis, R13.10 - Dysphagia, unspecified Discontinued amoxicillin Discontinued Reason: Patient Completed Course 500 mg PO BID 7 days 14 tabs 0RF ULTRASOUND OF THE ABDOMEN 03/28/24 FINDINGS: PANCREAS: Limited visualization of pancreatic tail and head. Imaged portion of pancreatic body is unremarkable. ABDOMINAL AORTA: Limited visualization of the abdominal aorta. Imaged portion of mid abdominal aorta is within normal limits in caliber. INFERIOR VENA CAVA: Visualized portions are normal. LIVER: Increased hepatic parenchymal heterogeneity and echogenicity could be associated with hepatocellular disease/hepatic steatosis and substantially limits visualization. Correlation with liver function tests and clinical exam recommended to determine further management. GALLBLADDER:. Focal thickening of the anterior gallbladder wall measures 0.4 cm. No gallstones appreciated. COMMON BILE DUCT: Normal in caliber measuring 0.5 cm in diameter. RIGHT KIDNEY: No hydronephrosis. No renal calculi. Limited visualization. The kidney measures 11.3 cm in maximum dimension. LEFT KIDNEY: No hydronephrosis. No renal calculi. Limited visualization. The kidney measures 11.9 cm in maximum dimension. SPLEEN: Normal. The spleen measures 10.0 cm in maximum dimension. FREE FLUID: None. US/US abdomen complete IMPRESSION: 1. Increased hepatic parenchymal heterogeneity and echogenicity could be associated with hepatocellular disease/hepatic steatosis and substantially limits visualization. Correlation with liver function tests and clinical exam recommended to determine further management. 2. Focal thickening of the anterior gallbladder wall measures 0.4 cm. No gallstones appreciated. BARIUM SWALLOW 04/08/24 FINDINGS: No laryngeal penetration or aspiration was observed during this examination. FLUOROSCOPY TIME: 36 seconds Number of Spot Images: N/A DOSE AREA PRODUCT: 311.8 uGy-m2 (microgray-meter squared) FL/FL barium swallow modified IMPRESSION: No laryngeal penetration or aspiration was observed during this examination. Refer to the speech therapy report for further clarification This procedure was performed by Harinder Altamirano PA-C, and supervised by Dr. Pruett SPEECH THERAPY REPORT Dietary Recommendations: Regular Medication Administration: Whole with Liquid Please contact the pharmacy regarding appropriate crushable or liquid drug formulations that are available whenever modified delivery is recommended. Compensatory Strategies Recommended: Sitting Upright (90 deg), Double Swallow, Small Bites and Sips, Alternate Liquids/Solids, Rate of Ingestion Change Supervision during eating and or drinking: None Needed Recommendation for Speech Therapy: NA:Typical EvaluationText Comment: Intake Recommendations: Route: PO Diet Grade: Regular Liquid Consistencies: Thin Post-Study Functional Oral Intake Scale (FOIS): 7- Total oral intake with no restrictions Mild oral and pharyngeal residue. No evidence of aspiration or penetration. Suggested Referrals: The patient might benefit from a referral to: Gastroenterology Indication for Referral: Continue workup Therapy Recommendations: This exam showed oral and pharyngeal phases to be relatively functional for swallowing. Recommend continue with an unmodified diet with strategies to promote clearance: take small bites, chew well, alternate bites and sips, dry swallow between bites. Speech Therapy is not indicated at this time. Recommend patient continue to monitoring her swallowing, if there are any changes or worsening of symptoms, she may benefit from a repeat-assessment. EGD BIOPSY TODAY'S VISIT She is taking the famotidine 40 mg twice a day and this has improved her epigastric pain and dyspepsia but it is not helping the swallowing. She continues to have a globus sensation and difficulty in the oropharyngeal phase of swallowing. Today we discussed using blocks under the head of the bed as likely it is gastric contents coming up at night that is irritating the laryngea l tissues. She says she also has large tonsils and this could be its own problem and a contributing factor or it could be a reaction to acid irritating the tissues. This is a difficult chicken and egg situation to figure out. She has not yet been contacted and I will send another reminder. I think were going to try to add a PPI that she has not been on before to the mix to see if we can get better resolution of her symptoms. Will try rabeprazole in the morning and she can continue her twice a day famotidine. In the past she was on pantoprazole but that did not seem to work as well as the famotidine for her. It is possible that she metabolized as this molecule differently. Return office visit in 8 weeks to evaluate her response [facility] Medical History (Updated 04/22/24 @ 11:31 by RAFFY Tsang) Physical exam Surgical History History of hydrocephalus Family History Mother Hypertension Diabetes Thyroid disease Father Diabetes Mental health disorder Social History Housing: House Alcohol intake: never Patient Tobacco Use Status: Never used Tobacco e-Cigarette/Vaping Use: Never Used Second Hand Smoke Exposure: No service: No Current occupational status: employed Current occupational exposures/hazards: No Cognitive needs: No Hearing needs: No Vision needs: No Review of Systems Const Denies fatigue, Denies fever(s), Denies night sweats, Denies poor appetite and Denies weight loss ENT Reports Normal hearing present, Denies dental pain, Denies dysphagia, Denies hearing loss, Denies mouth pain, Denies odynophagia, Denies throat swelling, Denies tongue swelling and Reports other (Dentition adequate) Card Reports no additional complaints Resp Reports no additional complaints GI Details: Denies abdominal pain, Denies melena, Denies bloating, Denies hematochezia, Denies constipation, Denies GI cramping, Denies dysphagia, Denies excessive flatus, Denies early satiety, Reports heartburn, Denies diarrhea, Denies nausea, Denies odynophagia, Denies vomiting and Denies hematemesis Skin/Breast Denies pruritus, Denies lesions, Denies rash and Denies jaundice Neuro Reports Normal hearing present and Denies Abnormal speech present Endo Denies fatigue Aller/Immun Denies throat swelling and Denies tongue swelling Physical Exam Vital Signs: Last Vital Signs Pulse 81 04/22/24 11:11 BP 147/78 H 04/22/24 11:11 BMI result Body Mass Index 37.6 Const General: cooperative, no acute distress, well developed and well groomed Nutritional Appearance: well nourished and obese Orientation/consciousness: oriented to person, oriented to place and oriented to time Limitations: No language barrier HEENT Head: Yes normocephalic and Yes atraumatic Eyes General: appearance normal, both eyes and all related structures Pupils: Equal, round and reactive pupils present Neck Neck: Yes normal visual inspection and Yes no lymphadenopathy Thyroid: Thyroid normal Resp Effort & Inspection: normal respiratory effort and able to speak in complete sentences Auscultation: clear to auscultation bilaterally Cardio Rate: regular rate Rhythm: regular rhythm Heart sounds: Normal, physiologic split S2 sound present Peripheral pulses: radial pulses present and posterior tibial pulses present GI Inspection: No distended, No Abdominal panniculus present and Yes obesity Palpation (GI): Soft to palpation, nontender, no guarding, not rigid and No hepatosplenomegaly present Percussion: Yes normal to percussion Auscultation: normal bowel sounds Rectal Exam - Female: deferred Skin General skin exam: no rashes or lesions noted, turgor normal, skin not dry, no jaundice, No spider nevi and no striae Rashes: no rashes Nails: normal Neuro General: oriented to person, oriented to place and oriented to time Cranial nerves: Yes Equal, round and reactive pupils present and Yes Normal hearing present Speech: No Abnormal speech present Extrem General: Yes normal to inspection, No clubbing, No cyanosis and No edema Psych Appearance: grossly normal and well kempt Mental Status: mental status grossly normal Speech and movement: Normal speech and movement present Affect: normal affect Attitude: cooperative Thought process: Normal thought process present and not confabulating Thought content: Normal thought content present Insight: Fair insight present (Psych) Judgement: Fair judgement present (Psych) Results Reviewed Results Reviewed: ULTRASOUND OF THE ABDOMEN 03/28/24 FINDINGS: PANCREAS: Limited visualization of pancreatic tail and head. Imaged portion of pancreatic body is unremarkable. ABDOMINAL AORTA: Limited visualization of the abdominal aorta. Imaged portion of mid abdominal aorta is within normal limits in caliber. INFERIOR VENA CAVA: Visualized portions are normal. LIVER: Increased hepatic parenchymal heterogeneity and echogenicity could be associated with hepatocellular disease/hepatic steatosis and substantially limits visualization. Correlation with liver function tests and clinical exam recommended to determine further management. GALLBLADDER:. Focal thickening of the anterior gallbladder wall measures 0.4 cm. No gallstones appreciated. COMMON BILE DUCT: Normal in caliber measuring 0.5 cm in diameter. RIGHT KIDNEY: No hydronephrosis. No renal calculi. Limited visualization. The kidney measures 11.3 cm in maximum dimension. LEFT KIDNEY: No hydronephrosis. No renal calculi. Limited visualization. The kidney measures 11.9 cm in maximum dimension. SPLEEN: Normal. The spleen measures 10.0 cm in maximum dimension. FREE FLUID: None. US/US abdomen complete IMPRESSION: 1. Increased hepatic parenchymal heterogeneity and echogenicity could be associated with hepatocellular disease/hepatic steatosis and substantially limits visualization. Correlation with liver function tests and clinical exam recommended to determine further management. 2. Focal thickening of the anterior gallbladder wall measures 0.4 cm. No gallstones appreciated. BARIUM SWALLOW 04/08/24 FINDINGS: No laryngeal penetration or aspiration was observed during this examination. FLUOROSCOPY TIME: 36 seconds Number of Spot Images: N/A DOSE AREA PRODUCT: 311.8 uGy-m2 (microgray-meter squared) FL/FL barium swallow modified IMPRESSION: No laryngeal penetration or aspiration was observed during this examination. Refer to the speech therapy report for further clarification This procedure was performed by Harinder Altamirano PA-C, and supervised by Dr. Pruett SPEECH THERAPY REPORT Dietary Recommendations: Regular Medication Administration: Whole with Liquid Please contact the pharmacy regarding appropriate crushable or liquid drug formulations that are available whenever modified delivery is recommended. Compensatory Strategies Recommended: Sitting Upright (90 deg), Double Swallow, Small Bites and Sips, Alternate Liquids/Solids, Rate of Ingestion Change Supervision during eating and or drinking: None Needed Recommendation for Speech Therapy: NA:Typical EvaluationText Comment: Intake Recommendations: Route: PO Diet Grade: Regular Liquid Consistencies: Thin Post-Study Functional Oral Intake Scale (FOIS): 7- Total oral intake with no restrictions Mild oral and pharyngeal residue. No evidence of aspiration or penetration. Suggested Referrals: The patient might benefit from a referral to: Gastroenterology Indication for Referral: Continue workup Therapy Recommendations: This exam showed oral and pharyngeal phases to be relatively functional for swallowing. Recommend continue with an unmodified diet with strategies to promote clearance: take small bites, chew well, alternate bites and sips, dry swallow between bites. Speech Therapy is not indicated at this time. Recommend patient continue to monitoring her swallowing, if there are any changes or worsening of symptoms, she may benefit from a repeat-assessment. Assessment & Plan Assessment & Plan (1) Dysphagia: Code(s): R13.10 - Dysphagia, unspecified Category: Medical (2) Upper abdominal pain: Code(s): R10.10 - Upper abdominal pain, unspecified Category: Medical (3) Chronic GERD: Code(s): K21.9 - Gastro-esophageal reflux disease without esophagitis Category: Medical Plan She is taking the famotidine 40 mg twice a day and this has improved her epigastric pain and dyspepsia but it is not helping the swallowing. She continues to have a globus sensation and difficulty in the oropharyngeal phase of swallowing. Today we discussed using blocks under the head of the bed as likely it is gastric contents coming up at night that is irritating the laryngeal tissues. She says she also has large tonsils and this could be its own problem and a contributing factor or it could be a reaction to acid irritating the tissues. This is a difficult chicken and egg situation to figure out. She has not yet been contacted and I will send another reminder. I think were going to try to add a PPI that she has not been on before to the mix to see if we can get better resolution of her symptoms. Will try rabeprazole in the morning and she can continue her twice a day famotidine. In the past she was on pantoprazole but that did not seem to work as well as the famotidine for her. It is possible that she metabolized as this molecule differently. Return office visit in 8 weeks to evaluate her response EGD BIOPSY Medications: New rabeprazole (AcipHex) 20 mg PO QAM 30 tabs 6RF K21.9 - Gastro-esophageal reflux disease without esophagitis, R13.10 - Dysphagia, unspecified Coding Level of Care Code Est Pt Level 3 (33323) Diagnoses Dysphagia R13.10 Upper abdominal pain R10.10 Chronic GERD K21.9
== END 2024-04-22 11:46 | disposition home or self-care (01) ==
PROVIDERS: PCP Internal Medicine; Visit Provider Nurse Practitioner
DX: R13.10 Dysphagia, unspecified (principal); R10.10 Upper abdominal pain, unspecified; K21.9 Gastro-esophageal reflux disease without esophagitis
CPT/HCPCS: 99213

== ENCOUNTER → 2024-04-22 10:56 | Outpatient (BNVA) | payer OTHER, SELFPAY | PROVIDERS: PCP Internal Medicine; Visit Provider Nurse Practitioner ==

== ENCOUNTER 2024-12-30 07:23 | Outpatient (REF) | payer OTHER, SELFPAY ==
--- OUTSIDE RECORDS SUMMARY | 2024-12-30 07:26 | XMS_ITS ---
Author Organization [facility] Address [address] [place] [address] Care Team Providers Care Executive Meeting Manager Name Role Phone HarrisburgAurora casiano Primary Care Provider Roberto Coelho M.D, M.P.H, Dorie Unavailable [phone] Allergies No Known Allergies REASON FOR VISIT tonsillitis Medications Medication SIG (Take, Route, Frequency, Duration) Notes Start Date End Date Status Famotidine 20 MG 1 tablet at bedtime as needed Orally Once a day Active Metoprolol Succinate 25 MG 1 capsule Ora lly Once a day Active medroxyPROGESTERone Acetate 10 MG 1 tablet with food Orally Once a day Active Social History Tobacco Use: Social History Observation Description Date Details (start date - stop date) Never Smoker NA - NA Smoking: Question Answer Notes Are you a : Never Smoker Alcohol Screen Question Answer Notes Did you have a drink containing alcohol in the p ast year? No Problems Problem Type SNOMED Code ICD Code Onset Dates Problem Status W/U Status Risk Notes Problem Chronic tonsillitis (46762484) Chronic tonsillitis (J35.01) Active confirmed Problem Chronic tonsillar hypertrophy (J35.1) Active confirmed Problem Breathing-relate d sleep disorder (disorder) (910289856) Sleep disorder breathing (G47.30) Active confirmed Vital Signs Blood pressure systolic 120 mm Hg 12/16/19 25 Blood pressure diastolic 80 mm Hg 025 Height 67 in 12/15/2024 Weight 240 lbs 12/15/2024 BMI 37.59 kg/m2 12/15/2024 Encounters Encounter Location Date Provider Diagnosis [facility] [address] [place] [address] 12/15/2024 Dorie Meliton Chronic tonsillitis J35.01 ; Chronic tonsillar hypertrophy J35.1 ; Deviated nasal septum J34.2 and Sleep disorder breathing G47.30 Assessments Encounter Date Diagnosis (ICD Code) Assessment Notes Treatment Notes Treatment Clinical Notes Section Notes 12/15/2024 Chronic tonsillitis (ICD-10 - J35.01) Patient meets criteria for tonsillectomy. Risks and benefits of surgery were discussed in detail. Benefits include decreased incidence of tonsil infection, improved breathing and improved swallowing. Risks include but are not limited to: post-operative bleeding, infection, pain, scarring, velopharyngeal incompetence, change in voice, change in taste, damage to teeth, damage to tongue, post-obstructive pulmonary edema and loss of airway. Patient expressed understanding and wishes to proceed. Will schedule at a mutually-convenien t time. 12/15/2024 Chronic tonsillar hypertrophy (ICD-10 - J35.1) 12/15/2024 Deviated nasal septum (ICD-10 - J34.2) discussed trial of intranasal steroids 12/15/2024 Sleep disorder breathing (ICD-10 - G47.30) address tonsils first given degree of hypertrophy. consider PSG if symptoms persist after surgery Plan Of Treatment Treatment Notes Assessment Notes Chronic tonsillitis Patient meets criteria for tonsillectomy. Risks and benefits of surgery were discussed in detail. Benefits include decreased incidence of tonsil infection, improved breathing and improved swallowing. Risks include but are not limited to: post-operative bleeding, infection, pain, scarring, velopharyngeal incompetence, change in voice, change in taste, damage to teeth, damage to tongue, post-obstructive pulmonary edema and loss of airway. Patient expressed understanding and wishes to proceed. Will schedule at a mutually-convenient time. Deviated nasal septum discussed trial of intranasal steroids Sleep disorder breathing address tonsils first given degree of hypertrophy. consider PSG if symptoms persist after surgery Next Appt Details Follow Up: schedule surgery, Reason: Provider Name:Dorie Coelho, 08:45:00 AM, [address] [place] [address], [id number], Provider Name:Mikal Lomeli , 02/03/2025 11:15:00 AM, [address] [facility], [address]LO[address], [place], [address], Progress Notes * Lora MOTTiDOB:0 1990 (34 yo F)Acc No.[id number]:12/15/2024 Progress Notes Patient:?Christos MOTT Provider:?Dorie Coelho M.D.,M.P.H :1990???Age:34 Y???Sex:Female D ate:12/15/2024 Address:[address] [place] [address] [id number] Pcp:Aurora Simpson Subjective: * Chief Complaints: * ???1. Tonsillitis. * HPI: ???General:?This is a 34F seen in consultation from Dr. Simpson for tonsilltis Patient with recurrent tonsillitis for the past few years. Has nearly constant sore throats. Will improve with antibiotics but then returns after the antibiotics finish. She has snoring and also has some daytime fatigue. has never had a sleep study. Has never had any witnessed apneas. Has nasal congestion. * ROS:?CONSTITUTIONAL:?fever?No.?weight loss?No.?fatigue?Yes.?Night Sweats?No.?DERMATOLOGY:?rash?No.?hives?No.?skin cancer?No.?skin lesion change?No.?Eczema?No.?ENT:?hearing loss?No.?sore throat?Yes.?ringing in ears?No.?dizziness?Yes.?snoring?Yes.?post nasal drip?No.?discharge from ears?No.?heartburn?Yes.?nasal congestion?Yes.?lump in neck or face?No.?prior nasal injury?No.?nosebleeds?Yes.?hoarseness?No.?ear pain?Yes.?Trouble Swallowing?Yes.?Trouble Speaking?No.?GASTROENTEROLOGY:?constipation?No.?diarrhea?No.?jaundice?No.?HEMATOLOGY/LYMPH:?easy bruising?No.?easy bleeding?No.?anemia?No.?NEUROLOGY:?headache?Yes.?tingling numbness?No.?face weakness?No.?Weakness?No.?PSYCHOLOGY:?anxiety?No.?depression?No.?Stress?Yes.?RESPIRATORY:?trouble breathing?Yes.?cough?Yes.?wheezing?No.?hemoptysis?No.? * Medical History:?Patient Med ical History Continued: High blood pressure. * Surgical History:?Denies Pas t Surgical History. * Hospitalization/Major Diagno stic Procedure:?Denies Past Hospitalization. * Family History:?Father: ama sims?Family Medical History: Seasonal Allergies.?Mother: alive.? * Social History:?Smoking?Are you a :?Never Smoker.?Alcohol Screen?Did you have a drink containing alcohol in the past year??No.? * Medications:?Taking medroxyP ROGESTERone Acetate 10 MG Tablet 1 tablet with food Orally Once a day , Taking Famotidine 20 MG Tablet 1 tablet at bedtime as needed Orally Once a day , Taking Metoprolol Succinate 25 MG Capsule ER 24 Hour Sprinkle 1 capsule Orally Once a day , Medication List reviewed and reconciled with the patient * Allergies:?N.K.D.A. Objective: * Vitals:?BP:120/80mm Hg, Ht: 67 in, Wt:240lbs, BMI:37.59Index. * Examination: ???General: ?General appearance?NAD, well-nourished, well-developed, normal body habitus.?Eyes?Normal lids, EOM intact, no erythema.?Lungs:?Breathing comfortably on room air.?Skin:?warm and dry, no rashes or lesions, no obvious concerning lesions on the head and neck.?Neurologic exam:?A & O x 3, CN II-XII grossly intact intact.?Voice:?Normal, no stridor.?Ears?hearing adequate for normal conversation, normal external ear bilaterally, normal ear canal bilaterally, TM intact bilaterally without erythema or effusions.?Psych?Cooperative with exam, well groomed, no agitation.?Musculoskeletal Neck full range of motion.?nose:?Septum with C shaped deviaton towards the right, inferior turbinates normal, middle turbinates in normal position, sinonasal mucosa normal, no polyps or purulence on anterior rhinoscopy.?Oral Cavity/Oropharynx:?lips normal, buccal mucosa smooth, fair dentition, gingiva without lesions, floor of mouth normal and soft, tongue mobile and soft, protrusion midline, palate normal with smooth mucosa, pharyngeal mucosa normal with smooth mucosa, retromolar trigone without mass or lesion. 3-4+ tonsils.?Neck:?Soft, supple, no cervical adenopathy, no thyroid masses, trachea midline.?Head and Face:?Normal facial features, no parotid or submandibular masses, no sinus tenderness with palpation, no facial swelling.? * Physical Examination:? Assessment: * Assessment: 1.?Chronic tonsillitis - J35 .01 (Primary)???2.?Chronic tonsillar hypertrophy - J35.1???3.?Deviated nasal septum - J34.2???4.?Sleep disorder breathing - G47.30??? Plan: * Treatment: 2.?Deviated nasal septum? Notes: discussed trial of intranasal steroids?? 3.?Sleep disorder breathing? Notes: address tonsils first given degree of hypertrophy. consider PSG if symptoms persist after surgery?? * Procedure Codes:?G9903 Pt sc rn tbco id as non user * Preventive Medicine:? ??Immunizations:?Influenza Immunization?Influenza Immunization?Yes.?covid vaccinated. * Follow Up:?schedule surgery * Images: * Sign off status: Completed true * Provider:?Dorie Coelho M.D.,M.P.H Date:?0 12/15/2024 Generated for rEin du/Kirill/eTransmitting on:?12/30/2024 07:26 AM EDT History and Physical Notes * HPI (History of Present Illness) Category Sub-Category Detail Notes Category Not es General This is a 34F seen in consultation from Dr. Simpson for tonsilltis Patient with recurrent tonsillitis for the past few years. Has nearly constant sore throats. Will improve with antibiotics but then returns after the antibiotics finish. She has snoring and also has some daytime fatigue. has never had a sleep study. Has never had any witnessed apneas. Has nasal congestion Examination Category Sub-Category Detail Notes Category Not es General Lungs: Breathing comfortably on giovanna m air General appearance NAD, well-nourished, well-developed, normal body habitus Skin: warm and dry, no valentina hes or lesions, no obvious concerning lesions on the head and neck Neurologic exam: A & O x 3, CN II-XII grossly intact intact Voice: Normal, no stridor Ears hearing adequate for normal conversation, normal external ear bilaterally, normal ear canal bilaterally, TM intact bilaterally without erythema or effusions nose: Septum with C shaped deviaton towards the right, inferior turbinates normal, middle turbinates in normal position, sinonasal mucosa normal, no polyps or purulence on anterior rhinoscopy Oral Cavity/Oropharynx: lips normal, buc vish mucosa smooth, fair dentition, gingiva without lesions, floor of mouth normal and soft, tongue mobile and soft, protrusion midline, palate normal with smooth mucosa, pharyngeal mucosa normal with smooth mucosa, retromolar trigone without mass or lesion. 3-4+ tonsils Neck: Soft, supple, no cer vical adenopathy, no thyroid masses, trachea midline Head and Face: Normal facial featur es, no parotid or submandibular masses, no sinus tenderness with palpation, no facial swelling Eyes Normal lids, EOM int act, no erythema Psych Cooperative with exa m, well groomed, no agitation Musculoskeletal Neck full range of m otion
--- OUTSIDE RECORDS SUMMARY | 2024-12-30 07:26 | XMS_ITS | Clinical Summary ---
Author Organization [employer] [facility] Address [address] [place] [address] Care Team Providers Care Engineer Assistant Name Role Phone Amara Saunders MD Primary Care Provider [phone] Surgical History Surgery Date Site/Laterality Comments OTHER SURGICAL HISTORY 05/2015 PROCEDURE: HISTORY OTHER; COMMENT: third ventriculostomy d/t hydrocephalous; in [place] ESOPHAGOGASTRODUODENOSCOPY 08/19/2016 PROCEDURE: [place] EGD TRANSORAL BIOPSY SINGLE/MULTIPLE; COMMENT: Dr. Ayala - heather. Biopsies negative for H. pylori and celiac disease. Medical History Medical History Date Comments HTN (hypertension) DX:HTN (hyper tension) GERD (gastroesophageal reflux disease) DX:GERD (gastroesophageal reflux disease) Fibromyalgia DX:Fibromyalgia H/O hydrocephalus 09/08/2017 DX:H/O hydroce phalus Family History Medical History Relation Name Comments No Known Problems Brother 1 Sumit half pater nal; : 06/04/1992 Other: Heart Disease Brother 2 Myles half pa ternal; : 01/27/2009 Arthritis Father Diabetes Father Other: Fibromyalgia Father No Known Problems Maternal Grandfather Arthritis Maternal Grandmother Coronary artery disease Maternal Grandmother Heart attack Maternal Grandmother Arthritis Mother Hyperlipidemia Mother Hypertension Mother Thyroid disease Mother Breast cancer Other COUSIN maternal femal e cousin No Known Problems Paternal Grandfather No Known Problems Paternal Grandmother Hypertension Sister Светлана : 05/14/1986 Colon cancer Neg Hx Ovarian cancer Neg Hx Stroke Neg Hx Relation Name Status Comments Brother 1 Sumit Alive Brother 2 Myles Alive Father Alive Maternal Grandfather Alive Maternal Grandmother Mother Alive Other COUSIN Alive Paternal Grandfather Paternal Grandmother Sister Светлана Alive Social History Tobacco Use Types Packs/Day Years Used Date Smoking Tobacco: Never Smokeless Tobacco: Never Alcohol Use Standard Drinks/Week Comments Yes 0.8 (1 standard drink = 0.6 oz p ure alcohol) Comments Unknown Sex and Gender Information Value Date Recorded Sex Assigned at Not on file Legal Sex Female 6:34 AM EST Gender Identity Not on file Sexual Orientation Not on file Obstetrics History Last Filed Vital Signs Vital Sign Reading Time Taken Comments Blood Pressure 143/93 02/04/2022 10:34 AM EDT R arm Pulse 88 02/04/2022 10:34 AM EDT Temperature - - Respiratory Rate - - Oxygen Saturation - - Inhaled Oxygen Concentration - - Weight 108 kg (237 lb) 02/04/2022 10:32 AM EDT Height 170.2 cm (5' 7 ) 02/04/2022 10:32 AM EDT Body Mass Index 37.12 02/04/2022 10:32 AM EDT Plan of Treatment Health Maintenance Due Date Last Done Comments Cervical Cancer Screening: P ap Smear 2010 Cholesterol Screening (Lipid Panel) 07/20/2022 Depression Screening 07/20/2022 HIV Screening 07/20/2022 Hepatitis C Screening 07/20/2022 Social Influencers of Health Screening 07/20/2022 Hypertension/CHF/CAD Annual BMP Blood Test 07/27/2022 COVID-19 Vaccine ( - 2023-2 5 season) 2024 10/06/2020, 08/30/2020 Influenza Vaccine (Season Ended) 2025 06/07/2021, 05/24/2020 DTaP,Tdap,and Td Vaccines (2 - Td or Tdap) 03/17/2028 03/17/2018 Hepatitis B Vaccines Completed 03/09/2019, 10/06/2018, 09/01/2018 HIB Vaccines Aged Out No longer eligi ble based on patient's age to complete this topic HPV Vaccines Aged Out No longer eligi ble based on patient's age to complete this topic Hepatitis A Vaccines Aged Out No long er eligible based on patient's age to complete this topic IPV Vaccines Aged Out No longer eligi ble based on patient's age to complete this topic MMR Vaccines Aged Out No longer eligi ble based on patient's age to complete this topic Meningococcal ACWY Vaccine Aged Out N o longer eligible based on patient's age to complete this topic Meningococcal B Vaccine Aged Out No l onger eligible based on patient's age to complete this topic Pneumococcal Vaccine: Pediatrics (0 to 5 Years) and At-Risk Patients (6 to 64 Years) Aged Out No longer eligible b ased on patient's age to complete this topic RSV Immunization Patients Under 20 months Aged Out No longer eligible b ased on patient's age to complete this topic Varicella Vaccines Aged Out No longer eligible based on patient's age to complete this topic Care Teams Engineer Assistant Relationship Specialty Start Date End Date Amara Saunders MD [address] [place] [id number] PCP - General Internal Medicine 07/06/20
--- OUTSIDE RECORDS SUMMARY | 2024-12-30 07:26 | XMS_ITS | Patient Health Record ---
Author Organization [facility] Address [address] [place] [address] Care Team Providers Care Procurement Representative Name Role Phone AWA DE JESUS Unavailable [phone] Allergies No Known Allergies Reason For Referral No Information Medications Medication SIG (Take, Route, Frequency, Duration) Notes Start Date End Date Status medroxyPROGESTERone Acetate 10 MG 2 tablet with food Orally Once a day for 90 days 02/26/2021 Active Metoprolol Succinate 25 MG 1 capsule Ora lly Once a day Active Famotidine 20 MG 1 tablet as needed Orally Once a day Active Social History Tobacco Use: Social History Observation Description Date Details (start date - stop date) Never Smoker NA - NA Tobacco Use/Smoking Question Answer Notes Are you a nonsmoker Alcohol Screen (Audit-C) Question Answer Notes Did you have a drink containing alcohol in the p ast year? No Points 0 Interpretation Negative Sexual History Question Answer Notes Had sex in the past 12 months (vaginal, oral, or anal)? No Have you ever had a Sexually transmitted disease ? No Last menstrual period 01/08/2021 Problems Problem Type SNOMED Code ICD Code Onset Dates Problem Status W/U Status Risk Notes Problem Dysmenorrhea, unspecified (N94.6) Active confirmed Problem Essential hypertension (96194555) Essential (primary) hypertension (I10) Active confirmed Problem Polycystic ovary syndrome (disorder) (227472518) Polycystic ovarian syndrome (E28.2) Active confirmed Problem Hirsutism (602886709) Hirsutism (L68.0) Active confirmed Problem Fibromyalgia (895884159) Fibromyalgia (M79.7) Active confirmed Problem Abnormal uterine bleeding (14202628685727) Abnormal uterine and vaginal bleeding, unspecified (N93.9) Active confirmed Vital Signs Temperature 96.8 degrees Fahrenheit 03/11/2024 Blood pressure diastolic 86 mm Hg 03/11/2024 Height 67 in 03/11/2024 Blood pressure systolic 132 mm Hg 03/11/2024 Weight 240 lbs 03/11/2024 BMI 37.59 kg/m2 03/11/2024 Encounters Encounter Location Date Provider Diagnosis [facility] [address] [place] [address] 03/11/2024 AWA DE JESUS Encounter for gynecological examination (general) (routine) without abnormal findings Z01.419 and Hirsutism L68.0 Assessments Encounter Date Diagnosis (ICD Code) Assessment Notes Treatment Notes Treatment Clinical Notes Section Notes 03/11/2024 Hirsutism (ICD-10 - L68.0) 03/11/2024 Encounter for gynecological examination (general) (routine) without abnormal findings (ICD-10 - Z01.419) During the visit, the following areas of concern were addressed: Discussed cervical cancer screening with either cytology alone every 3 years or high risk HPV co-testing every 5 years as per ASCCP guidelines. Advised continued annual pelvic exams. Patient encouraged to increase her level of exercise. SBE technique encouraged/tau ght. Plan Of Treatment Pending Test Test Name Order Date Sonohysterogram 01/15/2021 Test, Urine 01/18/2021 17OH PROGESTERONE, >12 YEARS 01/15/2021 ANTI-HEPATITIS C 02/26/2021 COMPLETE BLOOD COUNT 01/15/2021 DHEA SULFATE 01/15/2021 FSH 01/15/2021 HEP. B SURF. AG 02/26/2021 LH 01/15/2021 TESTOSTERONE 01/15/2021 TSH WITH REFLEX TO FT4 01/15/2021 SYPHILIS TESTING 02/26/2021 PROLACTIN WITH REFLEX TO MONOMERIC 01/15 HIV AB-AG 4TH GENERATION 02/26/2021 Next Appt Details Provider Name:AWAGreyson Gamble, 03/17/2025 08:30:00 AM, [address], [address], [place], [address], Insurance Providers Payer Name Payer Address Payer Phone Subscriber Number Group Number Insured Name Patient Relationship to Insured Coverage Start Date Coverage End Date [employer] [place] [address] [address] [place] [address] [id number] TREY FREIRE Self - patient is the insured Medical (General) History Medical History History ICD Code headaches heart murmur stomach ulcer Essential (primary) hypertension I10 Personal history of other diseases of th e nervous system and sense organs Z86.69 Fibromyalgia M79.7 Hirsutism L68.0 Surgical History Surgery Date(Month/Year) third ventricular endoscopy - in brain - for hydrocephalus 05/2015 Hospitalization History Reason Date(Month/Year) see surgical history
--- OUTSIDE RECORDS SUMMARY | 2024-12-30 07:26 | XMS_ITS | Patient Health Record ---
Author Organization [facility] Address [address] [place] [address] Care Team Providers Care Footwear Sales Associate Name Role Phone CalvinAurora casiano Primary Care Provider Roberto Coelho M.D, M.P.H, Dorie Unavailable [phone] Allergies No Known Allergies Reason For Referral [...] W/U Status Risk Notes Problem Chronic tonsillitis (31242370) Chronic tonsillitis (J35.01) Active confirmed Problem Chronic tonsillar hypertrophy (J35.1) Active confirmed Problem Breathing-relate d sleep disorder (disorder) (839767934) Sleep disorder breathing (G47.30) Active confirmed Vital Signs Blood pressure diastolic 80 mm Hg 12/15/2024 Height 67 in 12/15/2024 Blood pressure systolic 120 mm Hg 12/15/2024 Weight 240 lbs 12/15/2024 BMI 37.59 kg/m2 12/15/2024 Encounters Encounter Location Date Provider Diagnosis [facility] [address] [place] [address] 12/15/2024 Dorie Coelho Chronic tonsillitis J35.01 ; Chronic tonsillar hypertrophy [...] wishes to proceed. Will schedule at a [facility]convenien t time. 12/15/2024 Chronic tonsillar hypertrophy (ICD-10 - J35.1) 12/15/2024 Deviated nasal septum (ICD-10 - J34.2) discussed trial of intranasal steroids 12/15/2024 Sleep disorder breathing (ICD-10 - G47.30) address tonsils first given degree of hypertrophy. consider PSG if symptoms persist after surgery Plan Of Treatment Next Appt Details Provider Name:Dorie Coelho, 08:45:00 AM, [address] [place] [address], [phone], Provider Name:Mikal Lomeli , 02/03/2025 11:15:00 AM, [address] [facility], [place], [address], Insurance Providers Payer Name Payer Address Payer Phone Subscriber Number Group Number Insured Name Patient Relationship to Insured Coverage Start Date Coverage End Date [employer] [address] [address] [place] [address] [id number] Nabor Rosales Self - patient is the insured Medical (General) History Medical History History ICD Code Patient Medical History Continued: High blood pressure
--- OUTSIDE RECORDS SUMMARY | 2024-12-30 07:26 | XMS_ITS | Continuity of Care Document ---
Author Organization [facility] [address] [place] [address] Phone [phone] Care Team Providers Care Corporate Compliance Director Name Role Phone Jenn Romero MD Care Team Information Receiv er [phone] Problems Active Problems Provider Date Hirsutism JACK Cleary Onset: 2023 Fibromyalgia JACK Cleary Onset: 2023 Essential hypertension JACK Cleary Onset: 11/06/2023 Heart murmur JACK Cleary Onset: 2023 Social History Type Date Description Comments Sex Unknown Tobacco Use Start: Unknown Never Smoked Cigarettes ETOH Use Never used alcohol Allergies and adverse reactions Description No Known Drug Allergies Medications Active Medications SIG Qnty Indications Ordering Provider Date Wegovy0.25mg/0.5ML Solution Auto-Inject inject 0.25 mg weekly for 4 weeks 2ml E28.2 Gen Elena M.D. 12/11/2023 E66.9 Z68.38 Krfdwjvtkcjty0ad Tablets 1 tablet by mouth at 11 pm 1tabs Gen Elena M.D. 11/06/2023 Metoprolol Succinate ER25mg Tablets ER 24HR Take 1 Tablet By Mouth Every Day For 90 Days Jenn Miller Medroxyprogesterone Nthoxjr62mi Tablets Take 3 Tablets By Mouth With Food Once A Day 90 Days Unknown Gygnmr16ko Tablets 1 tab by mouth twice a day Unknown Vital Signs Date Vital Result Comment 12/11/2023 8:09am BP Systolic 130 mmHg BP Diastolic 60 mmHg Heart Rate 80 /min Height 67 inches 5'7 Weight 243.25 lb BMI (Body Mass Index) 38.1 kg/m2 Medical Devices Description No Information Available Encounters Type Date Location Provider Dx Diagnosis Office Visit 12/11/2023 8:00a Main Office JACK Cleary E66.9 Obesity, unsp ecified E28.2 Polycystic ovarian s yndrome L68.0 Hirsutism R53.83 Other fatigue Z68.38 Body mass index [BMI ] 38.0-38.9, adult Assessments Date Code Description Provider 12/11/2023 E66.9 Obesity, unspecified JACK Cleary 12/11/2023 E28.2 Polycystic ovarian syndrome JACK Cleary 12/11/2023 L68.0 Hirsutism JACK Cleary 12/11/2023 R53.83 Other fatigue JACK Cleary 12/11/2023 Z68.38 Body mass index [BMI] 38.0-3 8.9, adult JACK Cleary Plan of Treatment 12/11/2023 - JACK Cleary* E66.9 Obesity, unspecified * E28.2 Polycystic ovarian syndrome * L68.0 Hirsutism * R53.83 Other fatigue * Z68.38 Body mass index [BMI] 38.0-38.9, adult* New Medication:* Wegovy 0.25 mg/0.5ML Functional Status Description No Information Available Mental Status Description No Information Available Referrals Description No Information Available
[2024-12-30 08:20] LABS: Alanine Aminotransferase 16 U/L (0-31); Alkaline Phosphatase 54 U/L (39-117); Anion Gap 11 (12-20); Aspartate Amino Transferase 19 U/L (5-31); Bilirubin Total 0.3 mg/dL (0.0-1.0); Blood Urea Nitrogen 15 mg/dL (9-16); Calcium 9.2 mg/dL (8.4-10.2); Carbon Dioxide 22 mmol/L (22-29); Chloride 111 mmol/L (96-108); Cholesterol 170 mg/dL (<200); Estimated Glomerular Filt Rate > 60; Glucose Fasting 98 mg/dL (60-99); HDL Cholesterol 39 mg/dL (>40); LDL Cholesterol Calculated 120 mg/dL (<100); Potassium 4.6 mmol/L (3.3-5.1); Sodium 139 mmol/L (135-145); Total Protein 7.7 g/dL (6.5-8.0); Triglycerides 59 mg/dL (<150)
== END 2024-12-30 07:24 | disposition home or self-care (01) ==
LOC: HO.LAB 07:23
PROVIDERS: PCP Internal Medicine; Visit Provider Internal Medicine
DX: Z00.00 Encounter for general adult medical examination without abnormal findings (principal)
CPT/HCPCS: 36415; 80053; 80061

== ENCOUNTER 2025-01-03 12:20 | Outpatient (AMB) | payer OTHER, SELFPAY ==
--- NOTE | 2025-01-03 12:35 | A.OFFPC_ITS ---
Vital Signs 01/03/25 12:39 Height 5 ft 7 in Weight 247 lb BMI 38.7 BP 148/98 H Blood Pressure Location Lt brachial Position Sitting Intake Visit Reasons: Annual PE. Court Transcriber Required: No Accompanied by: Self / Same As Patient Allergies No Known Allergies Allergy (Verified 01/03/25 12:45) Medication List - Last Reconciled 01/03/25 by Jenn Blanchard MD famotidine (Pepcid) 40 mg PO BID medroxyprogesterone 30 mg PO DAILY metoprolol succinate ER 25 mg PO DAILY 90 days rabeprazole (AcipHex) 20 mg PO QAM Tobacco use date assessed: 01/03/25 Dental Screening Dental Screen Date: 01/03/25 Did you have a dental visit in the last 12 months?: Yes Did you have a dental problem in the last 6 months where you did not have access to dental care?: No Was dental information given to patient?: Patient has dentist HPI HPI Comments History of Present Illness Details The patient is a 34-year-old female presenting for an annual physical examination and vaccination review. Her medical history includes Essential Hypertension managed with home monitoring as her blood pressure tends to normalize outside of clinical settings. There is also a significant surgical history of hydrocephalus correction in 2014. Family history indicates a predisposition to diabetes and thyroid conditions. She reports experiencing chronic throat pain and headaches for the past year, attributed to enlarged tonsils, and is scheduled for a tonsillectomy in January. The patient suspects her obstructive sleep apnea might relate to an abdominal obstruction, affecting her sleep. Her most recent lab tests including cholesterol and blood glucose were satisfactory, and she maintains routine screenings such as Pap tests, with the last one returning normal. - Discussion of tetanus vaccine status; believed to be less than 10 years since last administration. - Recent comprehensive laboratory result s indicating normal cholesterol, glucose levels, and liver and kidney function. - Pap test last performed in February of the previous year, results normal. - Scheduled tonsillectomy in January. [facility] Medical History (Updated 01/03/25 @ 12:57 by Jenn Blanchard MD) Physical exam Surgical History History of hydrocephalus Family History Mother Hypertension Diabetes Thyroid disease Father Diabetes Mental health disorder Social History Housing: House Alcohol intake: never Patient Tobacco Use Status: Never used Tobacco e-Cigarette/Vaping Use: Never Used Second Hand Smoke Exposure: No service: No Current occupational status: employed Current occupational exposures/hazards: No Cognitive needs: No Hearing needs: No Vision needs: No Questionnaire PHQ-9 Over the last 2 weeks, how often have you been bothered by any of the following problems? 1. Little interest or pleasure in doing things: not at all 2. Feeling down, depressed, or hopeless: not at all 3. Trouble falling or staying asleep, or sleeping too much: not at all 4. Feeling tired or having little energy: not at all 5. Poor appetite or overeating: not at all 6. Feeling bad about yourself - or that you are a failure or have let yourself or your family down: not at all 7. Trouble concentrating on things, such as reading the newspaper or watching television: not at all 8. Moving or speaking so slowly that other people could have noticed. Or the opposite - being so fidgety or restless that you have been moving around a lot more than usual: not at all 9. Thoughts that you would be better off or of hurting yourself in some way: not at all Total score: 0 Depression Screening Interpretation: Negative Depression Screening Done: Yes 23285 - PHQ-9 Billing: Yes Source: Developed by Drs. Mikal Boston, Yana Isaac, Vick Zavala and colleagues, with an educational charles from [employer]. Thrive Questionnaire Date Thrive assessed: 01/03/25 I am a: Patient What is your living situation today?: I have a steady place to live Within the past 12 months, did the food you bought not last and you didn't have the money to get more?: Never true Within the past 12 months, did you worry whether your food would run out before you got money to buy more?: Never true Do you have trouble paying for medicines?: No Do you have trouble getting transportation to medical appointments?: No Do you have trouble paying your heating and electricity bill?: No Do you have trouble taking care of your child, family member or friend?: No Do you have trouble with day-to-day activities such as bathing, preparing meals, shopping, managing finances, etc.?: No Are you currently unemployed and looking for a job?: No Are you interested in more education?: No Please select the resources that you would like help with: None Currently or been in a relationship where the following occur: No concerns reported THRIVE Score: 0 AUDIT C Alcohol Use Questionnaire (AUDIT-C) 1. How often do you have a drink containing alcohol?: Never Total Score: 0 Score Reviewed/Action Taken: No TANI-7 AMB Questionnaire TANI-7 Date TANI - 7 assessed: 01/03/25 Feeling nervous, anxious, or on edge: 0 = Not at all Not being able to stop or control worryin = Not at all Worrying too much about different things: 0 = Not at all Trouble relaxin = Not at all Being so restless that it is hard to sit still: 0 = Not at all Becoming easily annoyed or irritable: 0 = Not at all Feeling afraid as if something awful might happen: 0 = Not at all Total TANI-7 score (0-4 normal; 5-9 mild; 10-14 moderate; 15-21 severe): 0 Source: Developed by Drs. Mikal Boston, Yana Isaac, Vick Zavala and colleagues, with an educational charles from [employer]. TANI-7 Assessment Billing TANI-7 Assessment Tool: TANI-7 Assessment 49072 Review of Systems Const All systems reviewed & are unremarkable except as noted in HPI and below Card Denies chest pain at rest, Denies chest pain with activity, Denies edema, Denies irregular heart rhythm, Denies claudication, Denies dyspnea, Denies dyspnea on exertion, Denies orthopnea, Denies paroxysmal nocturnal dyspnea and Denies slow heart rate Resp Denies cough, Denies dyspnea and Denies dyspnea on exertion GI Denies abdominal pain, Denies change in bowel habits, Denies excessive flatus, Denies nausea and Denies vomiting Physical exam (Primary Care) Vital Signs: Last Vital Signs BP 148/98 H 01/03/25 12:39 BMI result Body Mass Index 38.7 BMI Assessment/Plan discussion: High BMI High, discussed plan: lifestyle, weight reduction, dietary and physical activity Tobacco/Smoking Status: Tobacco use Status Tobacco use date assessed 01/03/25 01/03/25 12:42 Patient Tobacco Use Status Never used Tobacco 01/03/25 12:37 e-Cigarette/Vaping Use Never Used 01/03/25 12:37 PHQ-9: PHQ-9 Score PHQ-9: Total score 0 01/03/25 12:37 Depression Screening Interpretation: Negative Thrive Assessment: Date of Thrive Assessment Date Thrive assessed 01/03/25 01/03/25 12:37 Currently or been in a relationship where the following occur: No concerns reported HENMT Head: Yes normal to inspection, Yes normocephalic and Yes atraumatic Ears: external ears normal Eyes General: appearance normal, both eyes and all related structures Eyelids: Yes eyelids normal Conjunctivae: conjunctivae normal Neck Neck: Yes normal visual inspection and Yes supple Resp Effort & Inspection: normal respiratory effort Auscultation: clear to auscultation bilaterally Cardio Jugular venous distension: no JVD Rate: regular rate Rhythm: regular rhythm Heart sounds: S1 normal heart sound present and S2 normal heart sound present GI Inspection: Yes normal to inspection Palpation (GI): Soft to palpation and nontender Auscultation: normal bowel sounds Skin General skin exam: no rashes or lesions noted Neuro General: no focal motor deficits Extrem General: Yes full ROM Psych Appearance: grossly normal Coding Level of Care Code Complex EM visit Add On G2211 Diagnoses Physical exam Z00.00 Additional Codes PHQ-9 - 54576 - PHQ-9 Billing: Yes ([id number]) TANI-7 Assessment Billing - TANI-7 Assessment Tool: TANI-7 Assessment 32680 ([id number]) Time Spent (min) 30 Assessment & Plan Assessment & Plan (1) Physical exam: Code(s): Z00.00 - Encounter for general adult medical examination without abnormal findings Category: Medical Plan We evaluated the patient's tetanus vaccination status and determined no further action is needed as per her understanding of recent immunization history. Essential hypertension is managed at home and shows an appropriate decline outside of clinical stressors. The scheduled tonsillectomy will address her tonsillar hypertrophy, improving throat discomfort and potential sleep apnea symptoms attributed to abdominal obstruction. Family medical history indicates a predisposition to diabetes and thyroid issues, guiding ongoing health monitoring. Recent lab results confirmed stable health metrics, complementing her preventative care. Patient was informed and verbally consented to the use of an ambient scribe for clinic note documentation during this visit. We discussed her current health maintenance strategies in detail, including the management plan for essential hypertension and the rationale for home monitoring. The upcoming tonsillectomy was elaborated upon, with risks and benefits consented by the patient. Follow-up laboratory screenings due to family history were emphasized for future appointments. The patient was reassured regarding recent lab results aligning midterm health goals. Patient Instructions: - Continue home blood pressure monitoring and notify of significant changes. - Prepare for upcoming tonsillectomy by following preoperative instructions. - Maintain current health maintenance routines, including dietary assessment and weight monitoring. - Contact if there are new symptoms such as increased sleep disturbances or breathing issues. - Follow up on family history of diabetes and thyroid disease with routine screening tests.
[2025-01-03 12:39] VITALS: BP 148/98; BMI 38.7
--- OUTSIDE RECORDS SUMMARY | 2025-01-03 13:24 | XMS_ITS | Clinical Summary ---
Author Organization [facility] Address [address] [place] [address] Care Team Providers Care Machine Feeder Raw Stock Name Role Phone Amara Saunders MD Primary Care Provider [phone] Surgical History Surgery Date Site/Laterality Comments OTHER SURGICAL HISTORY 05/2015 PROCEDURE: HISTORY OTHER; COMMENT: third ventriculostomy d/t hydrocephalous; in OR ESOPHAGOGASTRODUODENOSCOPY 08/19/2016 PROCEDURE: OR EGD TRANSORAL BIOPSY SINGLE/MULTIPLE; COMMENT: Dr. Ayala [...] age to complete this topic Care Teams Machine Feeder Raw Stock Relationship Specialty Start Date End Date Amara Saunders MD [address] [place] [id number] PCP - General Internal Medicine 07/06/20
--- OUTSIDE RECORDS SUMMARY | 2025-01-03 13:24 | XMS_ITS | Patient Health Record ---
Author Organization [facility] Address [address] [place] [address] Care Team Providers Care Grease Rack Worker Name Role Phone AWA DE JESUS Unavailable [phone] Allergies No Known Allergies Reason For Referral [...] Problem Status W/U Status Risk Notes Problem Dysmenorrhea (594120272) Dysmenorrhea, unspecified (N94.6) Active confirmed Problem Essential hypertension (55877732) Essential (primary) hypertension (I10) Active confirmed Problem Polycystic ovary syndrome (disorder) (051753232) Polycystic ovarian syndrome (E28.2) Active confirmed Problem Hirsutism (424419238) Hirsutism (L68.0) Active confirmed Problem Fibromyalgia (479821472) Fibromyalgia (M79.7) Active confirmed Problem Abnormal uterine bleeding (59543030791293) Abnormal uterine and vaginal bleeding, unspecified (N93.9) Active confirmed Vital Signs Temperature 96.8 degrees Fahrenheit 03/11/2024 Blood pressure diastolic 86 mm Hg 03/11/2024 Height 67 in 03/11/2024 Blood pressure systolic 132 mm Hg 03/11/2024 Weight 240 lbs 03/11/2024 BMI 37.59 kg/m2 03/11/2024 Encounters Encounter Location Date Provider Diagnosis [facility] [address] [place] [address] 03/11/2024 AWA DE JESUS Encounter for gynecological [...] 4TH GENERATION 02/26/2021 Next Appt Details Provider Name:AWA Gamble, 03/17/2025 08:30:00 AM, [address], [address], [place], [address], Insurance Providers Payer Name Payer Address Payer Phone Subscriber Number Group Number Insured Name Patient Relationship to Insured Coverage Start Date Coverage End Date [employer] [place] [address] [address] [place] [address] [id number] TREY FREIRE Self - patient is the [...]
--- OUTSIDE RECORDS SUMMARY | 2025-01-03 13:24 | XMS_ITS ---
Author Organization [facility] Address [address] [place] [address] Care Team Providers Care Corrective Therapy Aide Teacher Name Role Phone MullinAurora casiano Primary Care Provider Roberto Coelho M.D, M.P.H, Dorie Unavailable Allergies No Known Allergies REASON FOR VISIT [...] W/U Status Risk Notes Problem Chronic tonsillitis (56999953) Chronic tonsillitis (J35.01) Active confirmed Problem Chronic tonsillar hypertrophy (J35.1) Active confirmed Problem Breathing-relate d sleep disorder (disorder) (959573519) Sleep disorder breathing (G47.30) Active confirmed Vital Signs Blood pressure systolic 120 mm Hg 12/16/19 25 Blood pressure diastolic 80 mm Hg 025 Height 67 in 12/15/2024 Weight 240 lbs 12/15/2024 BMI 37.59 kg/m2 12/15/2024 Encounters Encounter Location Date Provider Diagnosis [facility] [address] [place] [address] 12/15/2024 Dorie Meliton Chronic tonsillitis J35.01 ; [...] surgery, Reason: Provider Name:Dorie Coelho, 08:45:00 AM, [address] [place] [address], [id number], Provider Name:Mikal Lomeli , 02/03/2025 11:15:00 AM, [address] [facility] [address], [place], [address], Progress Notes * Lora MOTTiDOB:0 1990 (34 yo F)Acc No.[id number]:12/15/2024 Progress Notes Patient:?Christos MOTT Provider:?Dorie Coelho M.D.,M.P.H :1990???Age:34 Y???Sex:Female D ate:12/15/2024 Address:[address] [place] [address] [id number] Pcp:Aurora Simpson Subjective: * Chief Complaints: * [...] Provider:?Dorie Coelho M.D.,M.P.H Date:?0 12/15/2024 Generated for Erin du/Kirill/eTransmitting on:?01/03/2025 01:24 PM EDT History and Physical Notes * HPI [...]
--- OUTSIDE RECORDS SUMMARY | 2025-01-03 13:24 | XMS_ITS | Patient Health Record ---
Author Organization [facility] Address [address] [place] [address] Care Team Providers Care Textiles Printer Name Role Phone CalvinAurora casiano Primary Care Provider Roberto Coelho M.D, M.P.H, Dorie Unavailable Allergies No Known Allergies Reason For Referral [...] W/U Status Risk Notes Problem Chronic tonsillitis (74758433) Chronic tonsillitis (J35.01) Active confirmed Problem Hypertrophy of tonsils (96419062) Chronic tonsillar hypertrophy (J35.1) Active confirmed Problem Breathing-relate d sleep disorder (disorder) (306509826) Sleep disorder breathing (G47.30) Active confirmed Vital Signs Blood pressure diastolic 80 mm Hg 12/15/2024 Height 67 in 12/15/2024 Blood pressure systolic 120 mm Hg 12/15/2024 Weight 240 lbs 12/15/2024 BMI 37.59 kg/m2 12/15/2024 Encounters Encounter Location Date Provider Diagnosis [facility] [address] [facility] [address] [place] [address] 12/15/2024 Dorie Coelho Chronic tonsillitis J35.01 ; [...] wishes to proceed. Will schedule at a [facility]. 12/15/2024 Chronic tonsillar hypertrophy (ICD-10 - J35.1) 12/15/2024 Deviated nasal septum (ICD-10 - J34.2) discussed trial of intranasal steroids 12/15/2024 Sleep disorder breathing (ICD-10 - G47.30) address tonsils first given degree of hypertrophy. consider PSG if symptoms persist after surgery Plan Of Treatment Next Appt Details Provider Name:Dorie Coelho, 08:45:00 AM, [address] [place] [address], [phone], Provider Name:Mikal Lomeli , 02/03/2025 11:15:00 AM, [address] [facility], [place], [address], Insurance Providers Payer Name Payer Address Payer Phone Subscriber Number Group Number Insured Name Patient Relationship to Insured Coverage Start Date Coverage End Date [employer] [address] [address] [place] [address] [id number] Nabor Rosales Self - patient is the insured Medical (General) History Medical History History ICD Code Patient Medical History Continued: High blood pressure
--- OUTSIDE RECORDS SUMMARY | 2025-01-03 13:24 | XMS_ITS | Continuity of Care Document ---
Author Organization [facility] [address] [place] [address] Phone [phone] Care Team Providers Care Transport Specialist Name Role Phone Jenn oRmero MD Care Team Information Receiv er [phone] Problems Active Problems Provider Date Hirsutism JACK [...] E28.2 Gen Elena M.D. 12/11/2023 E66.9 Z68.38 Sybplhblzzqfy1jn Tablets 1 tablet by mouth at 11 pm 1tabs Gen Elena M.D. 11/06/2023 Metoprolol Succinate ER25mg Tablets ER 24HR Take 1 Tablet By Mouth Every Day For 90 Days Jenn Miller Medroxyprogesterone Cckrwvg09ml Tablets Take 3 Tablets By Mouth With Food Once A Day 90 Days Unknown Xfqkpb10jh Tablets 1 tab by mouth twice a [...]
== END 2025-01-03 12:57 | disposition home or self-care (01) ==
LOC: HO.HMCH 12:21
PROVIDERS: PCP Internal Medicine; Visit Provider Internal Medicine
DX: Z00.00 Encounter for general adult medical examination without abnormal findings (principal)

== ENCOUNTER → 2025-01-03 12:20 | Outpatient (BNVA) | payer OTHER, SELFPAY | PROVIDERS: PCP Internal Medicine; Visit Provider Internal Medicine | DX: Z00.00 Encounter for general adult medical examination without abnormal findings (principal); I10 Essential (primary) hypertension | CPT/HCPCS: 96127 ==